=== PATIENT | male | born 1945 ===

== ENCOUNTER 2022-09-14 12:25 | Inpatient (IN) | payer OTHER ==
--- OUTSIDE RECORDS SUMMARY | 2022-09-14 12:34 | XMS REPORT | Continuity of Care Document ---
:[address] [facility] t Address [address] [facility] [place] [address] Care Team Providers Name Role Phone Lyric Fernando MD Primary Care Physician Skyler Glass Attending Clinician Unavailable Christian Fernandez MD Attending Clinician Mitul Daugherty MD Attending Clinician DARILNG BEST Attending Clinician Unavailable Deandre Attending Clinician Unavailable Adriana APPLE, Poly Roth Attending Clinician [phone] Jose Izquierdo MA Attending Clinician Unavailable ADRIANA PIERRE DIAMOND [employer]LEY OPERATOR Attending Clinician Unavailable Marilin Sow, Josey Kruse Attending Clinician A_Deepak Attending Clinician Unavailable Herber_Rolf Attending Clinician Unavailable Tiki Griffith Attending Clinician Unavailable Geeta Tucker MA Attending Clinician Unavailable LYRIC FERNANDO Attending Clinician Unavailable JUANPABLO KELLEY Attending Clinician Unavailable CHRISTIAN FERNANDEZ Attending Clinician Unavailable MEEK DO Attending Clinician Unavailable HALLIE LUGO Attending Clinician Unavailable PJ BRYSON Attending Clinician Unavailable IRINA SHAH Attending Clinician Unavailable BOO DENTON Attending Clinician Unavailable EVANGELINA GARCIA Attending Clinician Unavailable Skyler Glass Admitting Clinician Unavailable Deandre Admitting Clinician Unavailable A_Deepak Admitting Clinician Unavailable Herber_Rolf Admitting Clinician Unavailable Payers Payer Name Policy Type Policy Number Effective Date Expiration Date S jose [place]IC[place]: [id number] 2009 [employer] Funding 00:00:00 [employer] [id number] INSURANCE [employer] (MEDICARE SUPPLEMENT) [place]IC[place]: [id number] 2009 [employer] Funding 00:00:00 - [facility] Problems Condition Condition Condition Status Onset Resolution Last Treating Co mments Source Name Details Category Date Date Treatment Clinician Date Screening Screening Problem Active [facility] for for 3-08 da malignant Malignant 00:00: Medi ehsan neoplasm Neoplasm 00 Group of of prostate Prostate Acute Acute Problem Active [facility] urinary Urinary 1-13 da tract Tract 00:00: Medical infection Infection 00 Grou p Vascular Vascular Problem Active [facility] dementia Dementia 8-31 da without without 00:00: Medical behavioral Behavioral 00 Gr oup disturbanc Disturbanc e e Parkinson' Parkinson' Disease Active M ethodi s disease s disease 07-17 st 00:00: Hospita 00 l Oropharyng Oropharyng Disease Active M ethodi eal eal 07-17 st dysphagia dysphagia 00:00: [facility]osp [facility] 00 l Parkinson' Parkinson' Problem Active [facility] s disease s Disease 3-03 da 00:00: Medical 00 Group Peripheral Peripheral Problem Active [facility] nerve Nerve 8-12 da disease Disease 00:00: Medical 00 Group Pain in Pain in Problem Active [facility] left knee Left Knee 8-12 da 00:00: Medical 00 Group Poor Poor Problem Active [facility] short-term Short-term 7-09 da memory Memory 00:00: Medical 00 Group 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 6-25 st impairment impairment 00:00: Ho danishakiet ) ) 00 l Amnesia Amnesia Problem Active [facility] 6-11 da 00:00: Medical 00 Group Peripheral Peripheral Problem Active [facility] vascular Vascular 5-14 da disease Disease 00:00: Medical 00 Group 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 5-14 da lower Lower 00:00: Medical extremity Extremity 00 Grou p Gastroesop Gastroesop Problem Active [facility] hageal hageal 5-14 da reflux Reflux 00:00: Medical disease Disease 00 Group without without esophagiti Esophagiti s s Benign Benign Problem Active [facility] prostatic Prostatic 5-14 da hyperplasi Hyperplasi 00:00: Me dical a without a without 00 Grou p outflow Outflow obstructio Obstructio n n Elevated Elevated Problem Active [facility] blood-pres Blood-pres 5-14 da sure sure 00:00: Medical reading Reading 00 Group without without diagnosis Diagnosis of of hypertensi Hypertensi on on Adult Adult Problem Active [facility] 5-[facility] da examinatio Examinatio 00:00: Me dical n n 00 Group Open wound Open Wound Problem Active [facility] of finger of Finger 1-27 da 00:00: Medical 00 Group Bronchitis Bronchitis Problem Active 2017-04 [facility] 2-06 da 00:00: Medical 00 Group Gastroesop Gastroesop Problem Active [facility] hageal hageal da reflux Reflux Medical disease Disease Group Dermatitis Dermatitis Problem Active [facility] Medical Group Confusiona Confusiona Problem Active [facility] l state l State da Medical Group Low back Low Back Problem Active [facility] pain Pain da Medical Group Abnormal Abnormal Problem Active [facility] gait Gait [facility] Medical Group Measuremen Measuremen Problem Active [facility] t finding t Finding da above above Medical reference Reference Grou p range Range Laceration Laceration Problem Active [facility] of forearm of Forearm da Medical Group Allergies, Adverse Reactions, Alerts This patient has no known allergies or adverse reactions. Family History Family Member Diagnosis Comments Start Date Stop Date Source Natural father Cancer [facility] Natural mother Hypertension [facility] Social History Social Habit Start Date Stop Date Quantity Comments Source Gender identity 2020-02-28 Identifies as male M ethodist 14:39:19 gender (finding) Hospital Sexual orientation 2020-02-28 Heterosexual Meth odist 14:39:19 (finding) Hospital Alcohol intake 2022-05-22 2022-05-22 Current drinker of [facility] 00:00:00 00:00:00 alcohol (finding) Hospita l History of Social 2022-05-22 2022-05-[address] function 00:00:00 00:00:00 Hospital Tobacco use and 2022-01-01 2022-01-01 Smokeless tobacco [facility] exposure 00:00:00 00:00:00 non-user Hospital Sex Ass[birth year] At [birth year] [facility] 00:00:00 00:00:00 [facility] Smoking Status Start Date Stop Date Source Former Smoker [facility] Never smoked tobacco [facility] Medications Ordered Filled Start Stop Current Ordering Indication Dosage Frequency Signature Comments Components Source Medication Medication Date Date Medication? Clinician (SIG) Name Name clonAZEPAM 2022- Yes TAKE ONE [facility] (KlonoPIN) 4-19 10-17 (1) TABLET st 0.5 MG 00:00: 04:59 (0.5 MG Hospita tablet 00 :00 TOTAL) BY l MOUTH NIGHTLY. clonAZEPAM 2022- Yes TAKE ONE [facility] (KlonoPIN) 4-19 10-17 (1) TABLET st 0.5 MG 00:00: 04:59 (0.5 MG Hospita tablet 00 :00 TOTAL) BY l MOUTH NIGHTLY. clonAZEPAM 2022- Yes TAKE ONE [facility] (KlonoPIN) 4-19 10-17 (1) TABLET st 0.5 MG 00:00: 04:59 (0.5 MG Hospita tablet 00 :00 TOTAL) BY l MOUTH NIGHTLY. clonAZEPAM 2022- Yes TAKE ONE [facility] (KlonoPIN) 4-19 10-17 (1) TABLET st 0.5 MG 00:00: 04:59 (0.5 MG Hospita tablet 00 :00 TOTAL) BY l MOUTH NIGHTLY. memantine 2022-0 Yes [id number] TAKE ONE [facility] (NAMENDA) 5 2-22 (1) TABLET st MG tablet 00:00: (5 MG Hospita 00 TOTAL) BY l MOUTH EVERY NIGHT AT BEDTIME X 1 WEEK THEN TAKE ONE TABLET TWICE A DAY. memantine 2022-0 Yes [id number] TAKE ONE Method[facility] (NAMENDA) 5 2-22 (1) TABLET st MG tablet 00:00: (5 MG Hospita 00 TOTAL) BY l MOUTH EVERY NIGHT AT BEDTIME X 1 WEEK THEN TAKE ONE TABLET TWICE A DAY. memantine 2022-0 Yes [id number] TAKE ONE [facility] (NAMENDA) 5 2-22 (1) TABLET st MG tablet 00:00: (5 MG Hospita 00 TOTAL) BY l MOUTH EVERY NIGHT AT BEDTIME X 1 WEEK THEN TAKE ONE TABLET TWICE A DAY. memantine 2022-0 Yes [id number] TAKE ONE [facility] (NAMENDA) 5 2-22 (1) TABLET st MG tablet 00:00: (5 MG Hospita 00 TOTAL) BY l MOUTH EVERY NIGHT AT BEDTIME X 1 WEEK THEN TAKE ONE TABLET TWICE A DAY. omeprazole 2023-0 Yes Q24H daily. Metho di (PriLOSEC) 1-25 st 40 MG 13:16: Hospita capsule 04 l tamsulosin 3-0 Yes tamsulosin M ethodi (FLOMAX) 1-[address] 0.4 mg 13:16: capsule Hospita capsule 04 TAKE 1 l CAPSULE BY MOUTH EVERY DAY TO IMPROVE URINARY STREAM take for prostate omeprazole 2023-0 Yes Q24H daily. Metho di (PriLOSEC) 1-25 st 40 MG 13:16: Hospita capsule 04 l tamsulosin 2023-0 Yes tamsulosin M ethodi (FLOMAX) 1-[address] 0.4 mg 13:16: capsule Hospita capsule 04 TAKE 1 l CAPSULE BY MOUTH EVERY DAY TO IMPROVE URINARY STREAM take for prostate omeprazole 2023-0 Yes Q24H daily. Metho di (PriLOSEC) 1-25 st 40 MG 13:16: Hospita capsule 04 l tamsulosin 0 Yes tamsulosin M ethodi (FLOMAX) 1-[address] 0.4 mg 13:16: capsule Hospita capsule 04 TAKE 1 l CAPSULE BY MOUTH EVERY DAY TO IMPROVE URINARY STREAM take for prostate omeprazole 2022-0 Yes Q24H daily. Metho di (PriLOSEC) 1-25 st 40 MG 13:16: Hospita capsule 04 l tamsulosin Yes tamsulosin M ethodi (FLOMAX) 1-[address] 0.4 mg 13:16: capsule Hospita capsule 04 TAKE 1 l CAPSULE BY MOUTH EVERY DAY TO IMPROVE URINARY STREAM take for prostate QUEtiapine 2022- No [id number] 50mg QD Take 2 Methodi (SEROqueL) 1-25 07-[address] 25 MG 00:00: 04:59 (50 mg Hospita tablet 00 :00 total) by l mouth nightly for 180 days. gabapentin 2022- No [id number] 300mg Q.5D Take 1 Method[facility] (Neurontin) 1-25 07-[address] 300 mg 00:00: 04:59 (300 mg Hospita capsule 00 :00 total) by l mouth 2 (two) times a day for 180 days. QUEtiapine 2022- No [id number] 50mg QD Take 2 [facility] (SEROqueL) 1-25 07-[address] 25 MG 00:00: 04:59 (50 mg Hospita tablet 00 :00 total) by l mouth nightly for 180 days. gabapentin 2022- No [id number] 300mg Q.5D Take 1 [facility] (Neurontin) 1-25 07-[address] 300 mg 00:00: 04:59 (300 mg Hospita capsule 00 :00 total) by l mouth 2 (two) times a day for 180 days. QUEtiapine 2022- No [id number] 50mg QD Take 2 [facility] (SEROqueL) 1-25 07-[address] 25 MG 00:00: 04:59 (50 mg Hospita tablet 00 :00 total) by l mouth nightly for 180 days. gabapentin 2022- No [id number] 300mg Q.5D Take 1 [facility] (Neurontin) 1-25 07-[address] 300 mg 00:00: 04:59 (300 mg Hospita capsule 00 :00 total) by l mouth 2 (two) times a day for 180 days. QUEtiapine 2022- No [id number] 50mg QD Take 2 [facility] (SEROqueL) 1-25 07-[address] 25 MG 00:00: 04:59 (50 mg Hospita tablet 00 :00 total) by l mouth nightly for 180 days. gabapentin 2022- No [id number] 300mg Q.5D Take 1 [facility] (Neurontin) 1-25 07-[address] 300 mg 00:00: 04:59 (300 mg Hospita capsule 00 :00 total) by l mouth 2 (two) times a day for 180 days. QUEtiapine 2022- No [id number] 25mg QD Take 1 [facility] (SEROqueL) 05-1325 tablet (25 st 25 MG 00:00: 00:00 mg total) Hospit a tablet 00 :00 by mouth l nightly for 90 days. QUEtiapine 2022- No [id number] 25mg QD Take 1 [facility] (SEROqueL) 05-13-25 tablet (25 st 25 MG 00:00: 00:00 mg total) Hospit a tablet 00 :00 by mouth l nightly for 90 days. QUEtiapine 2022- No [id number] 25mg QD Take 1 [facility] (SEROqueL) 05-13-25 tablet (25 st 25 MG 00:00: 00:00 mg total) Hospit a tablet 00 :00 by mouth l nightly for 90 days. QUEtiapine 2022- No [id number] 25mg QD Take 1 [facility] (SEROqueL) 05-13-25 tablet (25 st 25 MG 00:00: 00:00 mg total) Hospit a tablet 00 :00 by mouth l nightly for 90 days. tiZANidine Yes TAKE ONE Met [facility]odi (ZANAFLEX) 9-26 (1) TABLET st 4 MG tablet 00:00: (4 MG Hospi ta 00 TOTAL) BY l MOUTH EVERY 8 (EIGHT) HOURS NEEDED FOR MUSCLE SPASMS. tiZANidine Yes TAKE ONE Met [facility] (ZANAFLEX) 9-26 (1) TABLET st 4 MG tablet 00:00: (4 MG Hospi ta 00 TOTAL) BY l MOUTH EVERY 8 (EIGHT) HOURS NEEDED FOR MUSCLE SPASMS. tiZANidine Yes TAKE ONE Met hodi (ZANAFLEX) 9-26 (1) TABLET st 4 MG tablet 00:00: (4 MG Hospi ta 00 TOTAL) BY l MOUTH EVERY 8 (EIGHT) HOURS NEEDED FOR MUSCLE SPASMS. tiZANidine Yes TAKE ONE Met [facility]odi (ZANAFLEX) 9-26 (1) TABLET st 4 MG tablet 00:00: (4 MG Hospi ta 00 TOTAL) BY l MOUTH EVERY 8 (EIGHT) HOURS NEEDED FOR MUSCLE SPASMS. clonAZEPAM 2022- No [id number] .5mg QD Take 1 [facility] (KlonoPIN) 01-[address] 0.5 MG 00:00: 05:59 (0.5 mg Hospita tablet 00 :00 total) by l mouth nightly for 180 days. clonAZEPAM 2022- No [id number] .5mg QD Take 1 [facility] (KlonoPIN) 01-[address] 0.5 MG 00:00: 05:59 (0.5 mg Hospita tablet 00 :00 total) by l mouth nightly for 180 days. clonAZEPAM 2022- No [id number] .5mg QD Take 1 [facility] (KlonoPIN) 01-[address] 0.5 MG 00:00: 05:59 (0.5 mg Hospita tablet 00 :00 total) by l mouth nightly for 180 days. clonAZEPAM 2022- No [id number] .5mg QD Take 1 [facility] (KlonoPIN) 01-[address] 0.5 MG 00:00: 05:59 (0.5 mg Hospita tablet 00 :00 total) by l mouth nightly for 180 days. diazePAM 2021- No diazepam 2 [facility] (VALIUM) 2 01-01 09-[address] MG tablet 15:03: 00:00 TAKE ONE Hos julián 41 :00 (1) TABLET l 3 TIMES A DAY BY ORAL ROUTE FOR ANXIETY. diazePAM 2021- No diazepam 2 [facility] (VALIUM) 2 01-01 09-[address] MG tablet 15:03: 00:00 TAKE ONE Hos julián 41 :00 (1) TABLET l 3 TIMES A DAY BY ORAL ROUTE FOR ANXIETY. diazePAM 2021- No diazepam 2 [facility] (VALIUM) 2 01-01-[address] MG tablet 15:03: 00:00 TAKE ONE Hos julián 41 :00 (1) TABLET l 3 TIMES A DAY BY ORAL ROUTE FOR ANXIETY. diazePAM 2021- No diazepam 2 [facility] (VALIUM) 2 01-01-[address] MG tablet 15:03: 00:00 TAKE ONE Hos julián 41 :00 (1) TABLET l 3 TIMES A DAY BY ORAL ROUTE FOR ANXIETY. clonAZEPAM 2021- No [id number] .5mg QD Take 1 [facility] (KlonoPIN) 01-[address] 0.5 MG 00:00: 00:00 (0.5 mg Hospita tablet 00 :00 total) by l mouth nightly for 180 days. clonAZEPAM 2021- No [id number] .5mg QD Take 1 [facility] (KlonoPIN) 01-[address] 0.5 MG 00:00: 00:00 (0.5 mg Hospita tablet 00 :00 total) by l mouth nightly for 180 days. clonAZEPAM 2021-2021- No [id number] .5mg QD Take 1 [facility] (KlonoPIN) 01-[address] 0.5 MG 00:00: 00:00 (0.5 mg Hospita tablet 00 :00 total) by l mouth nightly for 180 days. clonAZEPAM 2021-2021- No [id number] .5mg QD Take 1 [facility] (KlonoPIN) 01-[address] 0.5 MG 00:00: 00:00 (0.5 mg Hospita tablet 00 :00 total) by l mouth nightly for 180 days. omeprazole 2021-0 Yes Q24H daily. Metho di (PriLOSEC) 07-17 st 40 MG 13:37: Hospita capsule 45 l tamsulosin 2-0 Yes tamsulosin M ethodi (FLOMAX) - 0.[address] 0.4 mg 13:37: capsule Hospita capsule 45 TAKE 1 l CAPSULE BY MOUTH EVERY DAY TO IMPROVE URINARY STREAM take for prostate omeprazole 2021- Yes Q24H daily. Metho di (PriLOSEC) 07-17 st 40 MG 13:37: Hospita capsule 45 l tamsulosin Yes tamsulosin M ethodi (FLOMAX) 07-[address] 0.4 mg 13:37: capsule Hospita capsule 45 TAKE 1 l CAPSULE BY MOUTH EVERY DAY TO IMPROVE URINARY STREAM take for prostate carbidopa-l 2021-2022- No [id number] 2{tbl} Q.[id number] Take 2 [facility] evodopa 07-[id number] (Sinemet) 00:00: 04:59 3D mouth 3 Hosp oll[facility] 25-100 mg 00 :00 (three) l per tablet times a day for 360 days. carbidopa-l 2022- No [id number] 2{tbl} Q.[id number] Take 2 [facility] evodopa 07-[id number] (Sinemet) 00:00: 04:59 3D mouth 3 Hosp [facility] 25-100 mg 00 :00 (three) l per tablet times a day for 360 days. carbidopa-l 2022- No [id number] 2{tbl} Q.[id number] Take 2 [facility] evodopa 07-[id number] (Sinemet) 00:00: 04:59 3D mouth 3 Hosp [facility] 25-100 mg 00 :00 (three) l per tablet times a day for 360 days. carbidopa-l 2021-0 2022- No [id number] 2{tbl} Q.[id number] Take 2 [facility] evodopa 07-[id number] (Sinemet) 00:00: 04:59 3D mouth 3 Hosp [facility] 25-100 mg 00 :00 (three) l per tablet times a day for 360 days. carbidopa-l 2021-2022- No [id number] 2{tbl} Q.[id number] Take 2 [facility] evodopa 07-[id number] (Sinemet) 00:00: 04:59 3D mouth 3 Hosp [facility]ll[facility] 25-100 mg 00 :00 (three) l per tablet times a day for 360 days. carbidopa-l 2021-2022- No [id number] 2{tbl} Q.32980499 Take 2 [facility] evodopa 07-17- [id number] tablets by st (Sinemet) 00:00: 04:59 3D mouth 3 [facility]osp [facility] 25-100 mg 00 :00 (three) l per tablet times a day for 360 days. carbidopa-l 2021-2021- No [id number] 1{tbl} Q.[id number] Take 1 [facility] evodopa 06-25- [id number] tablet by st (Sinemet) 00:00: 00:00 3D mouth 3 [facility]osp [facility] 25-100 mg 00 :00 (three) l per tablet times a day. carbidopa-l 2021- No [id number] 1{tbl} Q.[id number] Take 1 [facility] evodopa 06-[id number] (Sinemet) 00:00: 00:00 3D mouth 3 [facility] 25-100 mg 00 :00 (three) l per tablet times a day. memantine 2022- No [id number] 5mg Q.5D Take 1 [facility] (Namenda) 5 06-15 tablet (5 st MG tablet 00:00: 00:00 mg total) Ho spita 00 :00 by mouth 2 l (two) times a day. memantine 2022- No [id number] 5mg Q.5D Take 1 [facility] (Namenda) 5 06-15 tablet (5 st MG tablet 00:00: 00:00 mg total) Ho spita 00 :00 by mouth 2 l (two) times a day. memantine 2022- No [id number] 5mg Q.5D Take 1 [facility] (Namenda) 5 06-15 tablet (5 st MG tablet 00:00: 00:00 mg total) Ho spita 00 :00 by mouth 2 l (two) times a day. memantine 2022- No [id number] 5mg Q.5D Take 1 [facility] (Namenda) 5 -15 06- tablet (5 st MG tablet 00:00: 00:00 mg total) Ho spita 00 :00 by mouth 2 l (two) times a day. memantine 2022- No [id number] 5mg Q.5D Take 1 [facility] (Namenda) 5 -18 -19 tablet (5 st MG tablet 00:00: 05:59 mg total) Ho spita 00 :00 by mouth 2 l (two) times a day. memantine 2022- No [id number] 5mg Q.5D Take 1 [facility] (Namenda) 5 -15 06- tablet (5 st MG tablet 00:00: 05:59 mg total) Ho spita 00 :00 by mouth 2 l (two) times a day. tiZANidine 2021- No [id number] 4mg Q8H Take 1 [facility] (Zanaflex) 2-18 -18 tablet (4 st 4 MG tablet 00:00: 04:59 mg total) Hospita 00 :00 by mouth l every 8 (eight) hours as needed for muscle spasms for up to 180 days. tiZANidine 2021- No [id number] 4mg Q8H Take 1 [facility] (Zanaflex) 2-18 -18 tablet (4 st 4 MG tablet 00:00: 04:59 mg total) Hospita 00 :00 by mouth l every 8 (eight) hours as needed for muscle spasms for up to 180 days. tiZANidine 2021- No [id number] 4mg Q8H Take 1 [facility] (Zanaflex) 2-18 08-18 tablet (4 st 4 MG tablet 00:00: 04:59 mg total) Hospita 00 :00 by mouth l every 8 (eight) hours as needed for muscle spasms for up to 180 days. tiZANidine 2021- No [id number] 4mg Q8H Take 1 [facility] (Zanaflex) 2-18 08-18 tablet (4 st 4 MG tablet 00:00: 04:59 mg total) Hospita 00 :00 by mouth l every 8 (eight) hours as needed for muscle spasms for up to 180 days. tiZANidine 2021- No [id number] 4mg Q8H Take 1 [facility] (Zanaflex) 06-15-18 tablet (4 st 4 MG tablet 00:00: 04:59 mg total) Hospita 00 :00 by mouth l every 8 (eight) hours as needed for muscle spasms for up to 180 days. tiZANidine 2021- No [id number] 4mg Q8H Take 1 [facility] (Zanaflex) 06-1518 tablet (4 st 4 MG tablet 00:00: 04:59 mg total) Hospita 00 :00 by mouth l every 8 (eight) hours as needed for muscle spasms for up to 180 days. benzonatate benzonatate No 1capsul TID benzonatat [facility] 200 mg 200 mg e(s) e 200 mg da capsule capsule capsule Medica l Take 1 Take 1 Take 1 Group capsule 3 capsule 3 capsule 3 times a day times a day times a by oral by oral day by route. route. oral route. BinaxNOW BinaxNOW No BinaxNOW [facility] COVID-19 Ag COVID-19 Ag COVID-19 da Self Test Self Test Ag Self Me dical kit Use as kit Use as Test kit Group Directed on Directed on Use as the Package the Package Directed on the Package carbidopa carbidopa No carbidopa [facility] 25 25 25 da mg-levodopa mg-levodopa mg-levodop Medical 100 mg 100 mg a 100 mg Group tablet TAKE tablet TAKE tablet TWO (2) TWO (2) TAKE TWO TABLETS BY TABLETS BY (2) MOUTH 3 MOUTH 3 TABLETS BY (THREE) (THREE) MOUTH 3 TIMES A TIMES A (THREE) DAY. DAY. TIMES A DAY. dexamethaso dexamethaso No 1 Q1D dexamethas [facility] ne 6 mg ne 6 mg one 6 mg da tablet Take tablet Take tablet Medical 1 tablet 1 tablet Take 1 Group every day every day tablet by oral by oral every day route. route. by oral route. memantine 5 memantine 5 No memantine [facility] mg tablet mg tablet 5 mg da TAKE ONE TAKE ONE tablet Medic al (1) TABLET (1) TABLET TAKE ONE Group (5 MG (5 MG (1) TABLET TOTAL) BY TOTAL) BY (5 MG MOUTH EVERY MOUTH EVERY TOTAL) BY NIGHT AT NIGHT AT MOUTH BEDTIME X 1 BEDTIME X 1 EVERY WEEK THEN WEEK THEN NIGHT AT TAKE ONE TAKE ONE BEDTIME X TABLET TABLET 1 WEEK TWICE A TWICE A THEN TAKE DAY. DAY. ONE TABLET TWICE A DAY. omeprazole omeprazole No omeprazole [facility] 40 mg 40 mg 40 mg da capsule,del capsule,del capsule,de Medical ayed ayed layed Group release release release TAKE ONE TAKE ONE TAKE ONE (1) (1) (1) CAPSULE(S) CAPSULE(S) CAPSULE(S) BY MOUTH BY MOUTH BY MOUTH ONCE A DAY. ONCE A DAY. ONCE A NEEDS AN NEEDS AN DAY. NEEDS APPOINTMENT APPOINTMENT AN BEFORE NEXT BEFORE NEXT APPOINTMEN REFILL. REFILL. T BEFORE NEXT REFILL. tamsulosin tamsulosin No tamsulosin [facility] 0.4 mg 0.4 mg 0.4 mg da capsule capsule capsule Medica l TAKE ONE TAKE ONE TAKE ONE Faraz up CAPSULE BY CAPSULE BY CAPSULE BY MOUTH DAILY MOUTH DAILY MOUTH TO IMPROVE TO IMPROVE DAILY TO URINARY URINARY IMPROVE STREAM STREAM URINARY NEEDS. NEEDS. STREAM NEEDS. temazepam temazepam No 1capsul Q1D temazepam [facility] 15 mg 15 mg e(s) 15 mg da capsule capsule capsule Medica l Take 1 Take 1 Take 1 Group capsule capsule capsule every day every day every day by oral by oral by oral route. route. route. tizanidine tizanidine No tizanidine [facility] 4 mg tablet 4 mg tablet 4 mg d a TAKE ONE TAKE ONE tablet Medic al (1) TABLET (1) TABLET TAKE ONE Group (4 MG (4 MG (1) TABLET TOTAL) BY TOTAL) BY (4 MG MOUTH EVERY MOUTH EVERY TOTAL) BY 8 (EIGHT) 8 (EIGHT) MOUTH HOURS HOURS EVERY 8 NEEDED FOR NEEDED FOR (EIGHT) MUSCLE MUSCLE HOURS SPASMS. SPASMS. NEEDED FOR MUSCLE SPASMS. Valium 2 mg Valium 2 mg No 1 TID Valium 2 [facility] tablet Take tablet Take mg tablet da 1 tablet 3 1 tablet 3 Take 1 M edical times a day times a day tablet 3 Group by oral by oral times a route. route. day by oral route. Zithromax Zithromax No Zithromax [facility] Z-Jason 250 Z-Jason 250 Z-Jason 250 da mg tablet mg tablet mg tablet Medical TAKE 2 TAKE 2 TAKE 2 Group TABLETS TABLETS TABLETS (500 MG) BY (500 MG) BY (500 MG) ORAL ROUTE ORAL ROUTE BY ORAL ONCE DAILY ONCE DAILY ROUTE ONCE FOR 1 DAY FOR 1 DAY DAILY FOR THEN 1 THEN 1 1 DAY THEN TABLET (250 TABLET (250 1 TABLET MG) BY ORAL MG) BY ORAL (250 MG) ROUTE ONCE ROUTE ONCE BY ORAL DAILY FOR 4 DAILY FOR 4 ROUTE ONCE DAYS DAYS DAILY FOR 4 DAYS amoxicillin amoxicillin No amoxicilli [facility] [id number] n 875 da mg-potassiu mg-potassiu mg-potassi Medical m m um Group clavulanate clavulanate clavulanat 125 mg 125 mg e 125 mg tablet TAKE tablet TAKE tablet 1 TABLET 1 TABLET TAKE 1 EVERY 12 EVERY 12 TABLET HOURS BY HOURS BY EVERY 12 ORAL ROUTE ORAL ROUTE HOURS BY FOR 10 FOR 10 ORAL ROUTE DAYS. DAYS. FOR 10 DAYS. azithromyci azithromyci No azithromyc [facility] n 250 mg n 250 mg in 250 mg da tablet TAKE tablet TAKE tablet Medical 2 TABLETS 2 TABLETS TAKE 2 Faraz up (500 MG) BY (500 MG) BY TABLETS ORAL ROUTE ORAL ROUTE (500 MG) ONCE DAILY ONCE DAILY BY ORAL FOR 1 DAY FOR 1 DAY ROUTE ONCE THEN 1 THEN 1 DAILY FOR TABLET (250 TABLET (250 1 DAY THEN MG) BY ORAL MG) BY ORAL 1 TABLET ROUTE ONCE ROUTE ONCE (250 MG) DAILY FOR 4 DAILY FOR 4 BY ORAL DAYS DAYS ROUTE ONCE DAILY FOR 4 DAYS benzonatate benzonatate No benzonatat [facility] 200 mg 200 mg e 200 mg da capsule capsule capsule Medica l TAKE ONE TAKE ONE TAKE ONE Faraz up (1) (1) (1) CAPSULE(S) CAPSULE(S) CAPSULE(S) BY MOUTH BY BY MOUTH BY BY MOUTH MOUTH THREE MOUTH THREE BY MOUTH TIMES A DAY TIMES A DAY THREE NEEDED NEEDED TIMES A FOR COUGH. FOR COUGH. DAY NEEDED FOR COUGH. carbidopa carbidopa No carbidopa [facility] 25 25 25 da mg-levodopa mg-levodopa mg-levodop Medical 100 mg 100 mg a 100 mg Group tablet TAKE tablet TAKE tablet TWO (2) TWO (2) TAKE TWO TABLETS BY TABLETS BY (2) MOUTH 3 MOUTH 3 TABLETS BY (THREE) (THREE) MOUTH 3 TIMES A TIMES A (THREE) DAY. DAY. TIMES A DAY. clonazepam clonazepam No clonazepam [facility] 0.5 mg 0.5 mg 0.5 mg da tablet TAKE tablet TAKE tablet Medical ONE (1) ONE (1) TAKE ONE Group TABLET (0.5 TABLET (0.5 (1) TABLET MG TOTAL) MG TOTAL) (0.5 MG BY MOUTH BY MOUTH TOTAL) BY NIGHTLY. NIGHTLY. MOUTH NIGHTLY. dexamethaso dexamethaso No dexamethas [place] ne 6 mg ne 6 mg one 6 mg da tablet TAKE tablet TAKE tablet Medical 1 TABLET 1 TABLET TAKE 1 Group EVERY DAY EVERY DAY TABLET BY ORAL BY ORAL EVERY DAY ROUTE. ROUTE. BY ORAL ROUTE. memantine 5 memantine 5 No memantine [facility] mg tablet mg tablet 5 mg da TAKE ONE TAKE ONE tablet Medic al (1) TABLET (1) TABLET TAKE ONE Group (5 MG (5 MG (1) TABLET TOTAL) BY TOTAL) BY (5 MG MOUTH EVERY MOUTH EVERY TOTAL) BY NIGHT AT NIGHT AT MOUTH BEDTIME X 1 BEDTIME X 1 EVERY WEEK THEN WEEK THEN NIGHT AT TAKE ONE TAKE ONE BEDTIME X TABLET TABLET 1 WEEK TWICE A TWICE A THEN TAKE DAY. DAY. ONE TABLET TWICE A DAY. omeprazole omeprazole No omeprazole [facility] 20 mg 20 mg 20 mg da capsule,del capsule,del capsule,de Medical ayed ayed layed Group release release release omeprazole omeprazole No omeprazole [facility] 40 mg 40 mg 40 mg da capsule,del capsule,del capsule,de Medical ayed ayed layed Group release release release TAKE ONE TAKE ONE TAKE ONE (1) (1) (1) CAPSULE(S) CAPSULE(S) CAPSULE(S) BY MOUTH BY MOUTH BY MOUTH ONCE A DAY. ONCE A DAY. ONCE A DAY. tamsulosin tamsulosin No tamsulosin [facility] 0.4 mg 0.4 mg 0.4 mg da capsule capsule capsule Medica l TAKE ONE TAKE ONE TAKE ONE [facility] CAPSULE BY CAPSULE BY CAPSULE BY MOUTH DAILY MOUTH DAILY MOUTH TO IMPROVE TO IMPROVE DAILY TO URINARY URINARY IMPROVE STREAM STREAM URINARY NEEDS. NEEDS. STREAM NEEDS. tizanidine tizanidine No tizanidine [facility] 4 mg tablet 4 mg tablet 4 mg d a TAKE ONE TAKE ONE tablet Medic al (1) TABLET (1) TABLET TAKE ONE Group (4 MG (4 MG (1) TABLET TOTAL) BY TOTAL) BY (4 MG MOUTH EVERY MOUTH EVERY TOTAL) BY 8 (EIGHT) 8 (EIGHT) MOUTH HOURS HOURS EVERY 8 NEEDED FOR NEEDED FOR (EIGHT) MUSCLE MUSCLE HOURS SPASMS. SPASMS. NEEDED FOR MUSCLE SPASMS. benzonatate benzonatate No benzonatat [place] 200 mg 200 mg e 200 mg da capsule capsule capsule Medica l TAKE ONE TAKE ONE TAKE ONE [facility] (1) (1) (1) CAPSULE(S) CAPSULE(S) CAPSULE(S) BY MOUTH BY BY MOUTH BY BY MOUTH MOUTH THREE MOUTH THREE BY MOUTH TIMES A DAY TIMES A DAY THREE NEEDED NEEDED TIMES A FOR COUGH. FOR COUGH. DAY NEEDED FOR COUGH. carbidopa carbidopa No carbidopa [facility] 25 25 25 da mg-levodopa mg-levodopa mg-levodop Medical 100 mg 100 mg a 100 mg Group tablet TAKE tablet TAKE tablet TWO (2) TWO (2) TAKE TWO TABLETS BY TABLETS BY (2) MOUTH 3 MOUTH 3 TABLETS BY (THREE) (THREE) MOUTH 3 TIMES A TIMES A (THREE) DAY. DAY. TIMES A DAY. clonazepam clonazepam No clonazepam [facility] 0.5 mg 0.5 mg 0.5 mg da tablet TAKE tablet TAKE tablet Medical ONE (1) ONE (1) TAKE ONE Group TABLET (0.5 TABLET (0.5 (1) TABLET MG TOTAL) MG TOTAL) (0.5 MG BY MOUTH BY MOUTH TOTAL) BY NIGHTLY. NIGHTLY. MOUTH NIGHTLY. doxycycline doxycycline No 1capsul BID doxycyclin [facility] hyclate 100 hyclate 100 e(s) e hyclate da mg capsule mg capsule 100 mg M edical Take 1 Take 1 capsule Group capsule capsule Take 1 twice a day twice a day capsule by oral by oral twice a route for route for day by 10 days. 10 days. oral route for 10 days. gabapentin gabapentin No gabapentin [facility] 300 mg 300 mg 300 mg da capsule capsule capsule Medica l TAKE ONE TAKE ONE TAKE ONE [facility] (1) (1) (1) CAPSULE(S) CAPSULE(S) CAPSULE(S) BY MOUTH BY MOUTH BY MOUTH ONCE A DAY ONCE A DAY ONCE A DAY AT BEDTIME AT BEDTIME AT BEDTIME FOR 1 WEEK, FOR 1 WEEK, FOR 1 THEN 1 THEN 1 WEEK, THEN CAPSULE CAPSULE 1 CAPSULE (300 MG (300 MG (300 MG TOTAL) BY TOTAL) BY TOTAL) BY MOUTH 2 MOUTH 2 MOUTH 2 (TWO) TIMES (TWO) TIMES (TWO) A DAY. A DAY. TIMES A DAY. memantine 5 memantine 5 No memantine [facility] mg tablet mg tablet 5 mg da TAKE ONE TAKE ONE tablet Medic al (1) TABLET (1) TABLET TAKE ONE Group (5 MG (5 MG (1) TABLET TOTAL) BY TOTAL) BY (5 MG MOUTH EVERY MOUTH EVERY TOTAL) BY NIGHT AT NIGHT AT MOUTH BEDTIME X 1 BEDTIME X 1 EVERY WEEK THEN WEEK THEN NIGHT AT TAKE ONE TAKE ONE BEDTIME X TABLET TABLET 1 WEEK TWICE A TWICE A THEN TAKE DAY. DAY. ONE TABLET TWICE A DAY. omeprazole omeprazole No omeprazole [facility] 20 mg 20 mg 20 mg da capsule,del capsule,del capsule,de Medical ayed ayed layed Group release release release omeprazole omeprazole No omeprazole [facility] 40 mg 40 mg 40 mg da capsule,del capsule,del capsule,de Medical ayed ayed layed Group release release release TAKE ONE TAKE ONE TAKE ONE (1) (1) (1) CAPSULE(S) CAPSULE(S) CAPSULE(S) BY MOUTH BY MOUTH BY MOUTH ONCE A DAY. ONCE A DAY. ONCE A DAY. quetiapine quetiapine No quetiapine [facility] 25 mg 25 mg 25 mg da tablet TAKE tablet TAKE tablet Medical ONE (1) ONE (1) TAKE ONE Group TABLET (25 TABLET (25 (1) TABLET MG TOTAL) MG TOTAL) (25 MG BY MOUTH BY MOUTH TOTAL) BY NIGHTLY. NIGHTLY. MOUTH NIGHTLY. tamsulosin tamsulosin No tamsulosin [facility] 0.4 mg 0.4 mg 0.4 mg da capsule capsule capsule Medica l TAKE ONE TAKE ONE TAKE ONE [facility] up CAPSULE BY CAPSULE BY CAPSULE BY MOUTH DAILY MOUTH DAILY MOUTH TO IMPROVE TO IMPROVE DAILY TO URINARY URINARY IMPROVE STREAM STREAM URINARY NEEDS. NEEDS. STREAM NEEDS. tizanidine tizanidine No tizanidine [place] 4 mg tablet 4 mg tablet 4 mg d a TAKE ONE TAKE ONE tablet Medic al (1) TABLET (1) TABLET TAKE ONE Group (4 MG (4 MG (1) TABLET TOTAL) BY TOTAL) BY (4 MG MOUTH EVERY MOUTH EVERY TOTAL) BY 8 (EIGHT) 8 (EIGHT) MOUTH HOURS HOURS EVERY 8 NEEDED FOR NEEDED FOR (EIGHT) MUSCLE MUSCLE HOURS SPASMS. SPASMS. NEEDED FOR MUSCLE SPASMS. Immunizations Ordered Immunization Filled Immunization Date Status Commen ts Source Name Name COVID-19, mRNA, COVID-19, mRNA, 2021-04-02 Completed [facility] LNP-S, PF, 100 LNP-S, PF, 100 00:00:00 Medica l Group mcg/0.5 mL dose mcg/0.5 mL dose (Moderna) - ML (Moderna) - ML COVID-19, mRNA, COVID-19, mRNA, 2020-07-15 Completed [facility] LNP-S, PF, 100 LNP-S, PF, 100 00:00:00 Medica l Group mcg/0.5 mL dose mcg/0.5 mL dose (Moderna) (Moderna) COVID-19, mRNA, COVID-19, mRNA, 2020-07-15 Completed [facility] LNP-S, PF, 100 LNP-S, PF, 100 00:00:00 Medica l Group mcg/0.5 mL dose mcg/0.5 mL dose (Moderna) (Moderna) COVID-19, mRNA, COVID-19, mRNA, 2020-07-15 Completed [facility] LNP-S, PF, 100 LNP-S, PF, 100 00:00:00 Medica l Group mcg/0.5 mL dose mcg/0.5 mL dose (Moderna) (Moderna) COVID-19, mRNA, COVID-19, mRNA, 2020-06-15 Completed [facility] LNP-S, PF, 100 LNP-S, PF, 100 00:00:00 Medica l Group mcg/0.5 mL dose mcg/0.5 mL dose (Moderna) (Moderna) COVID-19, mRNA, COVID-19, mRNA, 2020-06-15 Completed [facility] LNP-S, PF, 100 LNP-S, PF, 100 00:00:00 Medica l Group mcg/0.5 mL dose mcg/0.5 mL dose (Moderna) (Moderna) COVID-19, mRNA, COVID-19, mRNA, 2020-06-15 Completed [facility] LNP-S, PF, 100 LNP-S, PF, 100 00:00:00 Medica l Group mcg/0.5 mL dose mcg/0.5 mL dose (Moderna) (Moderna) influenza, high dose influenza, high 2017-01-22 Completed [place] seasonal dose seasonal 11:01:38 Medical [facility] influenza, high dose influenza, high 2017-01-22 Completed [place] seasonal dose seasonal 11::38 Medical [facility] influenza, high dose influenza, high 2017-01-22 Completed [place] seasonal dose seasonal 11:01:38 Medical [facility] Vital Signs Vital Name Observation Time Observation Value Comments Source BP Diastolic 2022-07-03 00:00:00 79 mm[Hg] [facility] Height 2022-07-03 00:00:00 70 [in_i] [facility] BMI (Body Mass 2022-07-03 00:00:00 23.5 kg/m2 [facility]) Group BP Systolic 2022-07-03 00:00:00 123 mm[Hg] [facility] Body Weight 2022-07-03 00:00:00 2616 [oz_av] [facility] BP Diastolic 2022-05-10 00:00:00 67 mm[Hg] [facility] Height 2022-05-10 00:00:00 70 [in_i] [facility] BMI (Body Mass 2022-05-10 00:00:00 22.8 kg/m2 [facility]) Group BP Systolic 2022-05-10 00:00:00 109 mm[Hg] [facility] Body Weight 2022-05-10 00:00:00 2544 [oz_av] [facility] BP Diastolic 2021-12-26 00:00:00 95 mm[Hg] [facility] Height 2021-12-26 00:00:00 70 [in_i] [facility] BMI (Body Mass 2021-12-26 00:00:00 22 kg/m2 [facility]) Group BP Systolic 2021-12-26 00:00:00 166 mm[Hg] [facility] Body Weight 2021-12-26 00:00:00 2451.2 [oz_av] [facility] BP Diastolic 2021-06-28 00:00:00 79 mm[Hg] [facility] Height 2021-06-28 00:00:00 70 [in_i] [facility] BMI (Body Mass 2021-06-28 00:00:00 24.7 kg/m2 [facility] Group BP Systolic 2021-06-28 00:00:00 145 mm[Hg] [facility] Body Weight 2021-06-28 00:00:00 2752 [oz_av] [facility] BP Diastolic 2021-03-28 00:00:00 82 mm[Hg] [facility] Height 2021-03-28 00:00:00 70 [in_i] [facility] BP Systolic 2021-03-28 00:00:00 150 mm[Hg] [facility] BP Diastolic 2020-12-07 00:00:00 78 mm[Hg] [facility] Height 2020-12-07 00:00:00 70 [in_i] [facility] BMI (Body Mass 2020-12-07 00:00:00 24.1 kg/m2 [facility] Group BP Systolic 2020-12-07 00:00:00 119 mm[Hg] [facility] Body Weight 2020-12-07 00:00:00 2683.2 [oz_av] [facility] BP Diastolic 2019-11-04 00:00:00 77 mm[Hg] [facility] Height 2019-11-04 00:00:00 70 [in_i] [facility] BMI (Body Mass 2019-11-04 00:00:00 25 kg/m2 [facility] Group BP Systolic 2019-11-04 00:00:00 154 mm[Hg] [facility] Body Weight 2019-11-04 00:00:00 2784 [oz_av] [facility] BP Diastolic 2019-10-19 00:00:00 74 mm[Hg] [facility] Height 2019-10-19 00:00:00 70 [in_i] [facility] BMI (Body Mass 2019-10-19 00:00:00 25 kg/m2 [facility] Group BP Systolic 2019-10-19 00:00:00 132 mm[Hg] [facility] Body Weight 2019-10-19 00:00:00 174 [lb_av] [facility] BP Diastolic 2019-10-07 00:00:00 73 mm[Hg] [facility] Height 2019-10-07 00:00:00 70 [in_i] [facility] BMI (Body Mass 2019-10-07 00:00:00 25 kg/m2 [facility] Group BP Systolic 2019-10-07 00:00:00 125 mm[Hg] [facility] Body Weight 2019-10-07 00:00:00 2784 [oz_av] [facility] BP Diastolic 2019-09-16 00:00:00 80 mm[Hg] [facility] Height 2019-09-16 00:00:00 70 [in_i] [facility] BMI (Body Mass 2019-09-16 00:00:00 24.8 kg/m2 [facility] Group BP Systolic 2019-09-16 00:00:00 132 mm[Hg] [facility] Body Weight 2019-09-16 00:00:00 172.9 [lb_av] [facility] BP Diastolic 2019-09-09 00:00:00 86 mm[Hg] [facility] Height 2019-09-09 00:00:00 177.4 [in_i] [facility] BMI (Body Mass 2019-09-09 00:00:00 3.9 kg/m2 [facility] Group BP Systolic 2019-09-09 00:00:00 150 mm[Hg] [facility] Body Weight 2019-09-09 00:00:00 2800 [oz_av] [facility] BP Diastolic 2019-05-19 00:00:00 87 mm[Hg] [facility] Height 2019-05-19 00:00:00 177.4 [in_i] [facility] BMI (Body Mass 2019-05-19 00:00:00 4 kg/m2 [facility] Group BP Systolic 2019-05-19 00:00:00 160 mm[Hg] [facility] Body Weight 2019-05-19 00:00:00 2838.4 [oz_av] [facility] Systolic blood 2022-05-22 19:16:00 133 mm[Hg] [facility] pressure Diastolic blood 2022-05-22 19:16:00 87 [facility] Heart [facility] 2022-05-22 19:16:00 70 /min [facility] Body height 2022-05-22 19:16:00 162.6 cm [facility] Body weight 2022-05-22 19:16:00 71.215 kg [facility] BMI 2022-05-22 19:16:00 26.95 kg/m2 [facility] Systolic blood 2021-07-17 18:36:00 167 mm[Hg] [facility] pressure Diastolic blood 2021-07-17 18:36:00 78 mm[Hg] [facility] pressure Heart rate 2021-07-17 18:36:00 55 /min [facility] Body temperature 2021-07-17 18:36:[address] [facility] Body height 2021-07-17 18:36:00 162.6 cm [facility] Body weight 2021-07-17 18:36:00 77.111 kg [facility] BMI 2021-07-17 18:36:00 29.18 kg/m2 [facility] Procedures Procedure Date / Time Performed Performing Clinician Sourc e AMMONIA LEVEL 2022-01-01 20:29:00 Spheeris, [facility] Gonzalez XR, knee 2020-12-07 00:00:00 Barry Zamorano dical Group unlisted imaging 2019-09-16 00:00:00 Barry Schaefer edical order Group US, duplex, arterial, 2019-09-09 00:00:00 Cooper riggins Medical lower extremity, Group complete Plan of Care Planned Activity Planned Date Details Comments Source Future Scheduled Test 2022-09-12 Hepatitis C screening [facility] 18:32:59 (procedure) [code = 159912846] Future Scheduled Test 2022-09-12 SHINGLES VACCINES (1 [facility] 18:32:59 of 2) [code = SHINGLES VACCINES (1 of 2)] Future Scheduled Test 2022-09-12 65+ PNEUMOCOCCAL [facility] 18:32:59 VACCINE (1 - PCV) [code = 65+ PNEUMOCOCCAL VACCINE (1 - PCV)] Future Scheduled Test 2022-09-12 COVID-19 VACCINE (3 - [facility] 18:32:59 Booster for Moderna series) [code = COVID-19 VACCINE (3 - Booster for Moderna series)] Future Scheduled Test 2022-09-12 INFLUENZA VACCINE [facility] 18:32:59 [code = INFLUENZA VACCINE] Future Scheduled Test 2022-08-23 Hepatitis C screening [facility] 14:05:13 (procedure) [code = 766309439] Future Scheduled Test 2022-08-23 SHINGLES VACCINES (1 [facility] 14:05:13 of 2) [code = SHINGLES VACCINES (1 of 2)] Future Scheduled Test 2022-08-23 65+ PNEUMOCOCCAL [facility] 14:05:13 VACCINE (1 - PCV) [code = 65+ PNEUMOCOCCAL VACCINE (1 - PCV)] Future Scheduled Test 2022-08-23 COVID-19 VACCINE (3 - [facility] 14:05:13 Booster for Moderna series) [code = COVID-19 VACCINE (3 - Booster for Moderna series)] Future Scheduled Test 2022-08-23 INFLUENZA VACCINE [facility] 14:05:13 [code = INFLUENZA VACCINE] Future Scheduled Test 2022-08-23 Hepatitis C screening [facility] 14:05:13 (procedure) [code = [id number]] Future Scheduled Test 2022-08-23 SHINGLES VACCINES (1 [facility] 14:05:13 of 2) [code = SHINGLES VACCINES (1 of 2)] Future Scheduled Test 2022-08-23 65+ PNEUMOCOCCAL [facility] 14:05:13 VACCINE (1 - PCV) [code = 65+ PNEUMOCOCCAL VACCINE (1 - PCV)] Future Scheduled Test 2022-08-23 COVID-19 VACCINE (3 - [facility] 14:05:13 Booster for Moderna series) [code = COVID-19 VACCINE (3 - Booster for Moderna series)] Future Scheduled Test 2022-08-23 INFLUENZA VACCINE [facility] 14:05:13 [code = INFLUENZA VACCINE] Future Scheduled Test 2022-08-23 Hepatitis C screening [facility] 14:05:13 (procedure) [code = [id number]] Future Scheduled Test 2022-08-23 SHINGLES VACCINES (1 [facility] 14:05:13 of 2) [code = SHINGLES VACCINES (1 of 2)] Future Scheduled Test 2022-08-23 65+ PNEUMOCOCCAL [facility] 14:05:13 VACCINE (1 - PCV) [code = 65+ PNEUMOCOCCAL VACCINE (1 - PCV)] Future Scheduled Test 2022-08-23 COVID-19 VACCINE ([address] [place] [address] 14:05:13 Booster for Moderna series) [code = COVID-19 VACCINE (3 - Booster for Moderna series)] Future Scheduled Test 2022-08-23 INFLUENZA VACCINE [facility] 14:05:13 [code = INFLUENZA VACCINE] Diagnostic Test 2022-07-03 urinalysis, dipstick [facility] Pending 00:00:00 [code = urinalysis, Group dipstick] Diagnostic Test 2022-07-03 PSA, serum or plasma [facility] Pending 00:00:00 [code = PSA, serum or Group plasma] Future Scheduled Test 2021-12-15 HEPATITIS B VACCINES [facility] 19:05:59 (1 of 3 - 3-dose series) [code = HEPATITIS B VACCINES (1 of 3 - 3-dose series)] Future Scheduled Test 2021-12-15 Hepatitis C screening [facility] 19:05:59 (procedure) [code = [id number]] Future Scheduled Test 2021-12-15 SHINGLES VACCINES (1 [facility] 19:05:59 of 2) [code = SHINGLES VACCINES (1 of 2)] Future Scheduled Test 2021-12-15 65+ PNEUMOCOCCAL [facility] 19:05:59 VACCINE (1 - PCV) [code = 65+ PNEUMOCOCCAL VACCINE (1 - PCV)] Future Scheduled Test 2021-12-15 COVID-19 VACCINE (3 [facility] 19:05:59 Booster for Moderna series) [code = COVID-19 VACCINE (3 - Booster for Moderna series)] Future Scheduled Test 2021-12-15 INFLUENZA VACCINE [facility] 19:05:59 [code = INFLUENZA VACCINE] Future Scheduled Test 2021-12-15 HEPATITIS B VACCINES [facility] 19:05:59 (1 of 3 - 3-dose series) [code = HEPATITIS B VACCINES (1 of 3 - 3-dose series)] Future Scheduled Test 2021-12-15 Hepatitis C screening [facility] 19:05:59 (procedure) [code = [id number]] Future Scheduled Test 2021-12-15 SHINGLES VACCINES (1 [facility] 19:05:59 of 2) [code = SHINGLES VACCINES (1 of 2)] Future Scheduled Test 2021-12-15 65+ PNEUMOCOCCAL Me [facility] 19:05:59 VACCINE (1 - PCV) [code = 65+ PNEUMOCOCCAL VACCINE (1 - PCV)] Future Scheduled Test 2021-12-15 COVID-19 VACCINE (3 - [facility] 19:05:59 Booster for Moderna series) [code = COVID-19 VACCINE (3 - Booster for Moderna series)] Future Scheduled Test 2021-12-15 INFLUENZA VACCINE [facility] 19:05:59 [code = INFLUENZA VACCINE] Instructions [facility] Encounters Start End Encounter Admission Attending Care Care Encounter Source Date/Time Date/Time Type Type Clinicians Facility Department ID 2022-09-12 2022-09-14 Inpatient ER Glass, [facility] [id number] 12:29:00 11:09:00 Skyler -[id number] [facility] 2022-08-13 2022-08-13 Refill Christian Fernandez 1.2.840.1 [id number] [facility] 00:00:00 00:00:[address] 3.430.2.7 Hospit a .3.158444 l .8 2022-08-13 2022-08-13 Christian Maurer 1.2.840.1 [id number] [facility] 00:00:00 00:00:[address] 3.430.2.7 Hospit a .3.247463 l .8 2022-07-22 2022-07-22 Saleem Daugherty 1.2.840.1 [id number] [facility]i 00:00:00 00:00:[address] 3.430.2.7 Hospit a .3.394744 l .8 2022-07-22 2022-07-22 Refadan Daugherty, 1.2.840.1 [id number] [facility] 00:00:00 00:00:[address] 3.430.2.7 Hospit a .3.060334 l .8 2022-07-03 2022-07-03 Outpatient PAUL SNOW [facility] [id number] [facility] 12:41:00 12:41:00 [facility] -[id number] [facility] 2022-07-03 2022-07-03 Darling [place] - [id number] [facility] 00:00:00 00:00:00 Discovery Ganesh RECONCILIATION ANALYST-C: [address] [facility] [place], [place] - [address] [place] [address] , Ph. 2022-06-24 2022-06-24 Outpatient Deandre [facility] [id number] [facility] 00:00:00 00:00:00 0308 Medical Group 2022-06-19 2022-06-19 Christian Maurer 1.2.840.1 [id number] [facility]i 00:00:00 00:00:[address] 3.430.2.7 Hospit a .3.317211 l .8 2022-06-19 2022-06-19 Christian Maurer 1.2.840.1 [id number] [facility] 00:00:00 00:00:[address] 3.430.2.7 Hospit a .3.788371 l .8 2022-05-27 2022-05-27 Telephone Spheeris, 1.2.840.1 [id number] [facility] 00:00:00 00:00:[address] Gonzalez 3.430.2.7 Hospit a .3.952880 l .8 2022-05-27 2022-05-27 Telephone Spheeris, 1.2.840.1 [id number] [facility] 00:00:00 00:00:[address] Gonzalez 3.430.2.7 Hospit a .3.972699 l .8 2022-05-24 2022-05-24 Telephone Timbo, 1.2.840.1 [id number] Methodi 00:00:00 00:00:00 Baniqua S [address].1.[address] 3.430.2.7 Hospit a .3.516757 l .8 2022-05-24 2022-05-24 Telephone [place], 1.2.840.1 [id number] [facility]i 00:00:00 00:00:00 Baniqua S [address]17.1.[address] 3.430.2.7 Hospit a .3.062653 l .8 2022-05-22 2022-05-22 Office Spheeris, 1.2.840.1 [id number] [facility] 13:15:00 14:04:52 Visit Poly 94331.1.[address] Gonzalez 3.430.2.7 Hospit a .3.622417 l .8 2022-05-22 2022-05-22 Office Spheeris, 1.2.840.1 [id number] [facility]i 13:15:00 14:04:52 Visit Poly 98911.1.[address] Gonzalez 3.430.2.7 Hospit a .3.939494 l .8 2022-05-22 2022-05-22 Travel 1.2.840.1 1.2.701.218 [id number] [facility] 00:00:00 00:00:[address] 3.430.2.7 0.2.7.3.698 Ho spita .3.423398 084.8 l .8 2022-05-22 2022-05-22 Travel 1.2.840.1 1.2.079.693 [id number] [facility]i 00:00:00 00:00:[address] 3.430.2.7 0.2.7.3.698 Ho spita .3.731181 084.8 l .8 2022-05-13 2022-05-13 Telephone [place], 1.2.840.1 [id number] [facility]i 00:00:00 00:00:00 Baniqua S [address].1.[address] 3.430.2.7 Hospit a .3.625911 l .8 2022-05-13 2022-05-13 Telephone Spheeris, 1.2.840.1 [id number] [facility]i 00:00:00 00:00:[address] Gonzalez 3.430.2.7 Hospit a .3.701314 l .8 2022-05-13 2022-05-13 Telephone Spheeris, 1.2.840.1 [id number] [facility]i 00:00:00 00:00:[address] Gonzalez 3.430.2.7 Hospit a .3.378859 l .8 2022-05-13 2022-05-13 Telephone Timbo, 1.2.840.1 [id number] [facility]i 00:00:00 00:00:00 Baniqua S [address] 3.430.2.7 Hospit a .3.170691 l .8 2022-05-10 2022-05-10 Outpatient Patricia BHANDARI [facility] [id number] [facility] 00:00:00 00:00:00 [facility] 2022-05-10 2022-05-10 Darling BHANDARI [place] - [id number] [facility] 00:00:00 00:00:00 Discovery johnathon Glass RECONCILIATION ANALYST-C: [address] [facility] [address], [facility], [place] [address] , Ph. 2022-04-11 2022-04-27 Outpatient ANUP PIERRE, [facility] [id number] [place] 09:59:00 00:01:00 SPHEERIS -[id number] [facility] 2022-04-09 2022-04-09 Outpatient ANUP PIERRE, [facility] [id number] [place] 09:52:00 09:52:00 SPHEERIS -[id number] [facility] 2022-04-04 2022-04-04 Outpatient ANUP PIERRE, [facility] [id number] [place] 10:00:00 10:00:00 SPHRIS -[id number] [facility] 2022-04-02 2022-04-02 Outpatient ANUP IPERRE, [facility] [id number] [place] 10:00:00 10:00:00 SPHEERIS -[id number] [facility] 2022-03-28 2022-03-28 Outpatient ANUP PIERRE, [facility] [id number] [place] 07:18:00 07:18:00 SPHEERIS -[id number] [facility] 2022-03-26 2022-03-27 ambulatory [id number] 10:00:00 23:59:00 [id number]-[id number] 91 -80cd-e8d [id number] bcd 2022-03-26 2022-03-27 Outpatient ANUP PIERRE, [facility] [id number] 10:00:00 00:01:00 SPHEERIS -[id number] [facility] 2022-03-20 2022-03-20 Outpatient ANUP PIERRE, [facility] [id number] 10:00:00 10:00:00 SPHEERIS -[id number] [facility] 2022-03-19 2022-03-19 Outpatient ANUP PIERRE, [facility] [id number] 09:00:00 09:00:00 SPHEERIS -[id number] da [facility] 2022-03-14 2022-03-14 Outpatient ANUP PIERRE, [facility] [id number] 10:00:00 10:00:00 SPHEERIS -[id number] da [facility] 2022-03-08 2022-03-08 Outpatient ANUP PIERRE, [facility] [id number] 14:00:00 14:00:00 SPHEERIS -[id number] da [facility] 2022-03-05 2022-03-05 Outpatient ANUP PIERRE, [facility] [id number] 09:53:00 09:53:00 SPHEERIS -[id number] da [facility] 2022-02-27 2022-02-27 Outpatient ANUP PIERRE, [facility] [id number] 07:41:00 07:41:00 SPHEERIS -[id number] [facility] 2022-02-25 2022-02-25 ambulatory [id number] 16:00:00 23:59:00 [id number]-[id number] -80cd-[id number] bcd 2022-02-25 2022-02-25 Outpatient ANUP PIERRE, [facility] [id number] [place] 16:00:00 00:01:00 SPHEERIS -[id number] [facility] 2022-02-20 2022-02-20 Outpatient ANUP PIERRE, [facility] [id number] [place] 16:00:00 16:00:00 SPHEERIS -[id number] da [facility] 2022-02-19 2022-02-19 Outpatient ANUP PIERRE, [facility] [id number] [place] 16:00:00 16:00:00 SPHEERIS -[id number] da [facility] 2022-02-15 2022-02-15 Outpatient ANUP PIERRE, [facility] [id number] [place] 16:00:00 16:00:00 SPHEERIS -[id number] da [facility] 2022-02-13 2022-02-13 Outpatient ANUP PIERRE, [facility] [id number] [place] 15:00:00 15:00:00 SPHEERIS -[id number] [facility] 2022-02-08 2022-02-08 Outpatient ANUP PIERRE, [facility] [id number] [place] 10:00:00 10:00:00 SPHEERIS -[id number] [facility] 2022-02-06 2022-02-06 Outpatient EL POLY, [facility] [id number] [place] 10:59:00 10:59:00 SPHEERIS -[id number] [facility] 2022-02-05 2022-02-05 Office Christian Fernandez 1.2.840.1 [id number] Methodi 13:15:00 14:10:35 Visit Poly Noriega 79605.1.[address] 3.430.2.7 Hospit a .3.019638 l .8 2022-02-05 2022-02-05 Office FernandezChristian 1.2.840.1 [id number] Methodi 13:15:00 14:10:35 Visit Poly Noriega 50987.1.[address] 3.430.2.7 Hospit a .3.214879 l .8 2022-02-05 2022-02-05 Travel 1.2.840.1 1.2.765.720 5566 [id number] Methodi 00:00:00 00:00:[address] 3.430.2.7 0.2.7.3.698 Ho spita .3.972115 084.8 l .8 2022-02-05 2022-02-05 Travel 1.2.840.1 1.2.902.013 7998 [id number] Methodi 00:00:00 00:00:[address] 3.430.2.7 0.2.7.3.698 Ho spita .3.300612 084.8 l .8 2022-01-22 2022-01-22 Office Gaston, 1.2.840.1 [id number] 8030 Methodi 11:00:00 12:22:40 Visit Josey Kruse 26890.1.[address] 3.430.2.7 Hospit a .3.920994 l .8 2022-01-22 2022-01-22 Office [place], 1.2.840.1 [id number] 2310 Methodi 11:00:00 12:22:40 Visit Josey Kruse 44696.1.[address] 3.430.2.7 Hospit a .3.808214 l .8 2022-01-22 2022-01-22 Travel 1.2.840.1 1.2.651.507 8957 285319 Methodi 00:00:00 00:00:[address] 3.430.2.7 0.2.7.3.698 Ho spita .3.607803 084.8 l .8 2022-01-22 2022-01-22 Travel 1.2.840.1 1.2.405.538 6246 [id number] Methodi 00:00:00 00:00:[address] 3.430.2.7 0.2.7.3.698 Ho spita .3.205363 084.8 l .8 2022-01-20 2022-01-20 Christian Maurer 1.2.840.1 [id number] 21 [id number] Methodi 00:00:00 00:00:[address] 3.430.2.7 Hospit a .3.214231 l .8 2022-01-20 2022-01-20 Christian Maurer 1.2.840.1 [id number] 21 [id number] Methodi 00:00:00 00:00:[address] 3.430.2.7 Hospit a .3.584292 l .8 2022-01-14 2022-01-14 Office [place], 1.2.840.1 [id number] 4266 Methodi 13:00:00 15:53:46 Visit Josey Kruse 02454.1.[address] 3.430.2.7 Hospit a .3.196645 l .8 2022-01-14 2022-01-14 Office [place], 1.2.840.1 [id number] 6216 Methodi 13:00:00 15:53:46 Visit Josey Kruse 62800.1.[address] 3.430.2.7 Hospit a .3.723348 l .8 2022-01-14 2022-01-14 Travel 1.2.840.1 1.2.975.883 2161 786412 Methodi 00:00:00 00:00:[address] 3.430.2.7 0.2.7.3.698 Ho spita .3.530950 084.8 l .8 2022-01-14 2022-01-14 Travel 1.2.840.1 1.2.725.735 8113 829232 Methodi 00:00:00 00:00:[address] 3.430.2.7 0.2.7.3.698 Ho spita .3.609536 084.8 l .8 2022-01-01 2022-01-01 Office Christian Fernandez 1.2.840.1 [id number] Methodi 14:30:00 15:09:[address] 3.430.2.7 Hospit a .3.255664 l .8 2022-01-01 2022-01-01 Office Christian Fernandez 1.2.840.1 [id number] Methodi 14:30:00 15:09:[address] 3.430.2.7 Hospit a .3.059976 l .8 2022-01-01 2022-01-01 Outpatient Donnie_Deepak [facility] [id number] 022 [place] 00:00:00 00:00:00 0906 Medical Group 2022-01-01 2022-01-01 Travel 1.2.840.1 1.2.870.735 7812 075696 Methodi 00:00:00 00:00:[address] 3.430.2.7 0.2.7.3.698 Ho spita .3.576436 084.8 l .8 2022-01-01 2022-01-01 Travel 1.2.840.1 1.2.516.357 4726 419173 Methodi 00:00:00 00:00:[address] 3.430.2.7 0.2.7.3.698 Ho spita .3.333449 084.8 l .8 2021-12-27 2021-12-27 Outpatient A_Byrd [facility] [id number] [place] 00:00:00 00:00:00 09 [facility] 2021-12-26 2021-12-26 Outpatient A_Byrd [facility] [id number] [id number] [place] 00:00:00 00:00:00 0831 [facility] 2021-12-26 2021-12-26 Lyric N [facility] [place] - [id number] M atagor 00:00:00 00:00:00 MD Deepak: [address] Group [facility] [address] [place] [address] , Ph. 2021-12-25 2021-12-25 Outpatient Yan_W [facility] [id number] 022 [place] 00:00:00 00:00:00 829 [facility] 2021-12-24 2021-12-24 Emergency ER Gladis [facility] [id number] [place] 10:10:00 17:00:00 Tiki [id number] [facility] 2021-07-17 2021-07-17 Office Dat, 1.2.840.1 [id number] 0337 Methodi 13:45:00 14:30:17 Visit Mitul Jernigan 07588.1.[address] 3.430.2.7 Hospit a .3.354109 l .8 2021-07-17 2021-07-17 Travel 1.2.840.1 1.2.079.069 3901 003691 Methodi 00:00:00 00:00:[address] 3.430.2.7 0.2.7.3.698 Ho spita .3.319288 084.8 l .8 2021-06-28 2021-06-28 Outpatient Yan_W [facility] [id number] [id number] [place] 02:33:00 02:33:00 0303 [facility] 2021-06-28 2021-06-28 Lyric Saleem [facility] [place] - [id number] M at[place] 00:00:00 00:00:00 MD Deepak: [address] Group [facility] - [address] [place] [address] , Ph. 2021-06-25 2021-06-25 Telephone Christian Fernandez 1.2.840.1 [id number] Methodi 00:00:00 00:00:[address] 3.430.2.7 Hospit a .3.188690 l .8 2021-06-15 2021-06-15 Office Christian Fernandez 1.2.840.1 [id number] Methodi 11:00:00 12:07:[address] 3.430.2.7 Hospit a .3.443730 l .8 2021-06-15 2021-06-15 Travel 1.2.840.1 1.2.666.438 7140 086574 Methodi 00:00:00 00:00:[address] 3.430.2.7 0.2.7.3.698 Ho spita .3.677008 084.8 l .8 2021-04-30 2021-04-30 Orders Garrett, 1.2.840.1 [id number] 69561 75378 Methodi 00:00:00 00:00:[address] Only Geeta 13267.1.[address] 3.430.2.7 Hospit a .3.166067 l .8 2021-03-28 2021-03-28 Outpatient Herber_W [facility] [id number] [place] 10:52:00 10:52:00 1201 [facility] 2021-03-28 2021-03-28 Mark Herber [facility] [place] - [id number] [place] 00:00:00 00:00:00 : Guillaume [facility] [address] [place] [address], Otolaryngol [facility] [address] , Ph. 2020-12-07 2020-12-07 Outpatient Donnie_Byodalys [facility] [id number] [place] 11:28:00 11:28:00 0812 [facility] 2020-12-07 2020-12-07 Outpatient LYRIC GARCIA [facility] D000 [id number] [place] 11:08:00 11:08:00 -[id number] [facility] 2020-12-07 2020-12-07 Lyric Saleem [facility] [place] - [id number] M at[place]or 00:00:00 00:00:00 MD Deepak: [address], [place] [address] , Ph. 2020-12-07 2020-12-07 Outpatient CHRISTIAN FERNANDEZ [facility] 542 [id number] [place] 00:00:00 00:00:[address] 2020-11-16 2020-11-16 Outpatient ALLIE, [facility] [id number] [place] 00:00:00 00:00:00 JUANPABLO [address] 2020-11-09 2020-11-09 Outpatient A_Byrd [facility] [id number] [place] 03:50:00 03:50:00 0715 [facility] 2020-11-09 2020-11-09 Outpatient A_Byrd [facility] [id number] [place] 03:50:00 03:50:00 0811 [facility] 2020-09-08 2020-09-08 Outpatient CHRISTIAN VILLAFUERTE [facility] D00 [id number] [place] 08:27:00 08:27:00 -[id number] [facility] 2020-08-25 2020-08-25 Outpatient CHRISTIAN FERNANDEZ [facility] 872 [id number] [place] 00:00:00 00:00:[address] 2020-05-29 2020-05-29 [facility] [id number] [place] 00:00:00 00:00:[address] 2020-05-29 2020-05-29 Outpatient CHRISTIAN FERNANDEZ [facility] [id number] [place] 00:00:00 00:00:[address] 2020-05-29 2020-05-29 Outpatient CHRISTIAN FERNANDEZ [facility] 517 [id number] [place] 00:00:00 00:00:[address] 2020-04-25 2020-04-25 [facility] [id number] [place] 00:00:00 00:00:[address] 2020-04-25 2020-04-25 Outpatient CHRISTIAN FERNANDEZ [facility] 478 [id number] [place] 00:00:00 00:00:[address] 2020-04-14 2020-04-14 Outpatient CHRISTIAN FERNANDEZ [facility] [id number] [place] 00:00:00 00:00:[address] 2020-04-14 2020-04-14 [facility] [id number] [place] 00:00:00 00:00:[address] 2020-03-15 2020-03-15 Outpatient A_Byrd [facility] [id number] [place] 02:24:00 02:24:00 1118 [facility] 2020-03-02 2020-03-02 Outpatient CHRISTIAN FERNANDEZ [facility] [id number] [place] 00:00:00 00:00:[address] 2020-02-28 2020-02-28 Outpatient [facility] [id number] [place] 00:00:00 00:00:[address] 2020-01-26 2020-01-26 Outpatient A_Byrd [facility] [id number] [place] 10:55:00 10:55:00 0930 [facility] 2020-01-24 2020-01-24 Outpatient CHRISTIAN FERNANDEZ [facility] 859 [id number] [place] 00:00:00 00:00:00 086 Method i 2019-12-31 2019-12-31 Outpatient CHRISTIAN FERNANDEZ [facility] 309 [id number] [place] 00:00:00 00:00:00 278 Method i 2019-11-04 2019-11-04 Outpatient A_Byrd [facility] [id number] [place] 07:08:00 07:08:00 0709 [facility] 2019-11-04 2019-11-04 Lyric Saleem MM [place] - [id number] M at[place] 00:00:00 00:00:00 MD Deepak: [address] [employer] [facility] [place] - [address], [facility], [place] [address] , Ph. 2019-10-21 2019-10-21 Outpatient A_Byrd [facility] [id number] [place] 12:54:00 12:54:00 0625 [facility] 2019-10-21 2019-10-21 Outpatient CHRISTIAN FERNANDEZ [facility] 256 [id number] [place] 00:00:00 00:00:00 532 Method i 2019-10-21 2019-10-21 Outpatient CHRISTIAN FERNANDEZ [facility] [id number] [place] 00:00:00 00:00:00 991 Method i 2019-10-20 2019-10-20 Outpatient A_Byrd [facility] [id number] [place] 10:58:00 10:58:00 0624 Medical [facility] 2019-10-19 2019-10-19 Outpatient A_Byrd [facility] [id number] [place] 09:19:00 09:19:00 0623 Medical [facility] 2019-10-19 2019-10-19 Meek [facility] [place] - [id number] M at[place]or 00:00:00 00:00:00 Boo Palmer MD: Medical Medica [address], [place] [address] , Ph. [phone] 2019-10-12 2019-10-12 Outpatient A_Byrd [facility] [id number] [place] 10:22:00 10:22:00 0616 Medical [facility] 2019-10-08 2019-10-08 Outpatient EL TEODOROMATTY BobbyNN [facility] D00 [id number] [place] 07:48:00 07:48:00 -[id number] [facility] 2019-10-07 2019-10-07 Outpatient A_Byrd [facility] [id number] [place] 05:39:00 05:39:00 0611 Medical [facility] 2019-10-07 2019-10-07 Lyric Saleem [facility] [place] - [id number] M at[place] 00:00:00 00:00:00 MD Deepak: [employer] [address] [place] [address] [address] [address] , Ph. 2019-10-01 2019-10-01 Outpatient A_Byrd [facility] [id number] [place] 01:02:00 01:02:00 0610 Medical Group 2019-09-23 2019-09-23 Outpatient A_Byrd [facility] [id number] [place] 12:06:00 12:06:00 0528 Medical Group 2019-09-17 2019-09-17 Outpatient A_Byrd [facility] [id number] [place] 02:41:00 02:41:00 0522 Medical Group 2019-09-16 2019-09-16 Outpatient A_Byrd [facility] [id number] [place] 04:57:00 04:57:00 0521 Medical Group 2019-09-16 2019-09-16 Meek [facility] [place] - [id number] M at[place] 00:00:00 00:00:00 Boo Palmer MD: Medical [facility] [address], [place] [address] , Ph. [phone] 2019-09-09 2019-09-09 Outpatient EL SOMMER FERNANDON [facility] D000 [id number] [place] 11:50:00 11:50:00 -[id number] [facility] 2019-09-09 2019-09-09 Outpatient A_Byrd [facility] [id number] [place] 06:22:00 06:22:00 0514 Medical Group 2019-09-09 2019-09-09 Lyric Saleem [facility] [place] - [id number] M at[place]or 00:00:00 00:00:00 MD Deepak: [address], [facility] [address] , Ph. 2019-09-07 2019-09-07 Outpatient A_Byrd [facility] [id number] [place] 06:53:00 06:53:00 0512 Medical [facility] 2019-09-07 2019-09-07 Lyric Saleem [facility] [place] - [id number] M at[place]or 00:00:00 00:00:00 MD Deepak: [address], [facility] [address] , Ph. 2019-09-06 2019-09-06 Outpatient [facility] [id number] [place] 03:43:00 03:43:00 0511 Medical Group 2019-06-03 2019-06-03 Outpatient A_Byrd [facility] [id number] [place] 10:36:00 10:36:00 0206 da Medical Group 2019-05-20 2019-05-20 Outpatient A_Byrd [facility] [id number] [place] 03:39:00 03:39:00 0123 Medical Group 2019-05-19 2019-05-19 Outpatient A_Byrd [facility] [id number] [place] 02:57:00 02:57:00 0122 Medical Group 2019-05-19 2019-05-19 Mary [facility] [place] - [id number] M at[place]or 00:00:00 00:00:00 Alyssa Abbasi Medical Medical OFFICE MACHINES WIRER: [address] [facility] [address], [place] [address] , Ph. 2017-01-22 2017-01-22 Outpatient LYRIC GARCIA [facility] D000 [id number] [place] 10:10:00 10:10:00 -[id number] [facility] 2016-07-09 2016-07-09 Outpatient ANUP LUGO [facility] [id number] [place] 07:11:00 07:11:00 HALLIE -[id number] [facility] 2015-03-16 2015-03-16 Emergency ER PJ BRYSON [facility] [id number] [place] 10:22:00 11:44:00 -[id number] [facility] 2014-08-19 2014-08-19 Outpatient ANUP LUGO [facility] [id number] [place] 08:08:00 08:08:00 HALLIE -[id number] [facility] 2011-07-21 2011-07-21 Emergency ER SHAH, [facility] [id number] [place] 15:26:00 17:33:00 IRINA -[id number] [facility] 2009-03-10 2009-03-10 Outpatient ANUP LUGO [facility] [id number] [place] 09:00:00 09:00:00 HALLIE -[id number] [facility] 2006-09-04 2006-09-04 Outpatient ANUP DENTON [facility] [id number] [place] 05:59:00 05:59:00 BOO [id number] [facility] 1999-09-30 1999-10-01 Emergency ER JOSE, [facility] [id number] [place] 20:35:00 00:30:00 EVANGELINA [id number] [facility] Results Test Description Test Time Test Comments Results Result Comments Source total prostate screening 2022-07-03 15:04:00 Test Item Value Reference Range Interpretation Comme nts total prostate screening (test code = total prostate 2.02 NG/mL 0 .0-4.00 screening) [facility] - [id number] 12:23:00 Test Item Value Reference Range Interpretation Comments Leukocytes (test code = Trace Leukocytes) Nitrite (test code = negative Nitrite) Urobilinogen (test code = 1 Urobilinogen) Protein (test code = Negative Protein) pH (test code = pH) 5.5 Blood (test code = Blood) Non-Hemolyzed: Trace Specific [place] (test 1.030 code = Specific [place]) Ketone (test code = Negative Ketone) Bilirubin (test code = Negative Bilirubin) Glucose (test code = Negative Glucose) Appearance (test code = Clear Appearance) Color (test code = Color) Dark Yellow [facility] panel - [id number] 11:42:00 Test Item Value Reference Range Interpretation Comments Leukocytes (test code = Negative Leukocytes) Nitrite (test code = negative Nitrite) Urobilinogen (test code = .2 Urobilinogen) Protein (test code = Negative Protein) pH (test code = pH) 7.0 Blood (test code = Blood) Hemolyzed: Trace Specific [place] (test code 1.020 = Specific [place]) Ketone (test code = Ketone) Negative Bilirubin (test code = Negative Bilirubin) Glucose (test code = Negative Glucose) Appearance (test code = Clear Appearance) Color (test code = Color) Yellow [facility]2022-09-07 16:10:00 Test Item Value Reference Range Interpretation Comments Ammonia (test code = 39 ug/dL 31-169 34320-9) ADRYAN (test code = ADRYAN) Performed at: [address] [place] [address] [id number] Director: Bruce Garcia MD, Phone: [phone] [place] 482182-09-07 16:10:00 Test Item Value Reference Range Interpretation Comments Ammonia (test code = 39 ug/dL 31-169 96232-2) ADRYAN (test code = ADRYAN) Performed at: [address] [place] [address] [id number] Director: Bruce Garcia MD, Phone: [phone] [place] 482182-09-07 16:10:00 Test Item Value Reference Range Interpretation Comments Ammonia (test code = 39 ug/dL 31-169 14345-9) ADRYAN (test code = ADRYAN) Performed at: [facility] [id number] Director: Bruce Garcia MD, Phone: [phone] [facility]2022-09-07 16:10:00 Test Item Value Reference Range Interpretation Comments Ammonia (test code = 39 ug/dL 31-169 14194-6) ADRYAN (test code = ADRYAN) Performed at: - [facility] [address] [id number] Director: Bruce Garcia MD, Phone: [phone] [facility] pathology [id number] 06:35:00 Test Item Value Reference Range Interpretation Comments Surgical pathology see separate pathology study (test code = report. 25139-4) [facility] [id number] 06:35:00 Test Item Value Reference Range Interpretation Comments Surgical pathology see separate pathology study (test code = report. 38862-4) [facility] W Reflex Culture panel - Urine 2019-09-09 10:15:00 Test Item Value Reference Range Interpretation Comments Color of Urine by Auto (test light yellow code = 47380-4) Appearance of Urine (test code clear clear = 5767-9) Glucose [Presence] in Urine by negative negative Automated test strip (test code = 27218-0) Bilirubin.total [Mass/volume] negative negative in Urine (test code = 1978-6) Ketones [Mass/volume] in Urine negative negative by Automated test strip (test code = 33676-4) Specific gravity of Urine by 1.017 1.003-1.030 Automated test strip (test code = 65072-3) blood urine (test code = blood trace negative H urine) pH of Urine (test code = 6.500 5-9 2756-5) protein urine (UA) (test code = negative negative protein urine (UA)) Urobilinogen [Presence] in normal 0.2-1.0 Urine (test code = 92698-0) Nitrite [Presence] in Urine by negative negative Test strip (test code = 5802-4) Leukocyte esterase [Presence] negative negative in Urine by Automated test strip (test code = 55320-8) Leukocytes [#/area] in Urine <1 0-5 sediment by Automated count (test code = 18851-4) Epithelial cells [Presence] in <1 0-5 Urine sediment by Light microscopy (test code = 71191-2) Bacteria identified in Urine by none detected none detect Culture (test code = 630-4) Casts [#/area] in Urine none detected none detect sediment by Automated count (test code = 89974-1) urine culture added? (test code no = urine culture added?) [facility] W Auto Differential panel - [id number] 10:15:00 Test Item Value Reference Range Interpretation Comments white blood count (test code = 6.8 K/uL 4.0-12.3 white blood count) red blood count (test code = red 4.47 M/uL 3.80-5.80 blood count) hemoglobin (test code = 13.6 g/dL 11.7-17.2 hemoglobin) hematocrit (test code = 41.7 % 35.0-51.0 hematocrit) MCV [Entitic volume] (test code = 93.3 fL 83-100 13456-8) mean corpuscular hemoglobin (test 30.4 pg 26.8-33.4 code = mean corpuscular hemoglobin) mean corpuscular HGB conc (test 32.6 g/dL 30-35 code = mean corpuscular HGB conc) red cell distribution width (test 12.3 % 12.0-14.0 code = red cell distribution width) platelet count (test code = 243 K/uL 175-450 platelet count) mean platelet volume (test code = 10.3 fL 9.4-12.6 mean platelet volume) Segmented neutrophils/100 60.2 % 44.7-82.4 leukocytes in Blood (test code = 63696-2) Immature granulocytes [#/volume] 0.0 K/uL 0.0-0.03 in Blood (test code = 90299-7) lymphocyte% (test code = 29.0 % 10.0-50.0 lymphocyte%) mono % (test code = mono %) 7.2 % 3.9-13.4 eos % (test code = eos %) 2.9 % 0.0-6.4 Basophils/100 leukocytes in 0.6 % 0.2-1.2 Unspecified specimen (test code = 58676-1) Band form neutrophils [#/volume] 4.08 K/uL 1.78-5.38 in Blood (test code = 90066-8) Lymphocytes [#/volume] in 2.0 K/uL 1.32-3.57 Unspecified specimen by Automated count (test code = 41036-6) mono # (test code = mono #) 0.49 K/uL 0.30-0.82 eos # (test code = eos #) 0.20 K/uL 0.04-0.54 basophil # (test code = basophil 0.04 K/uL 0.01-0.08 #) NRBC% (test code = NRBC%) 0 /100 WBC 0-0.2 NRBC# (test code = NRBC#) 0 K/u[facility] unspecified - [id number] 10:15:00NeutrophilsBandLymphocyteMonocyteEosinophilPlatelet EstimateMataNoxubee General HospitalHemoglobin A1c [Mass/volume] in [id number] 10:15:00 Test Item Value Reference Range Interpretation Comments Hemoglobin A1c [Mass/volume] in Blood 6.1 % 4.0-6.0 H (test code = 26005-7) [facility] 2000 [facility] - Serum or Plasma 2019-09-09 10:15:00 Test Item Value Reference Range Interpretation Comments Glucose [Mass/volume] in Serum or 97 mg/dL 82-115 Plasma (test code = 2345-7) Urea nitrogen [Mass/volume] in 15 mg/dL 8-23 Serum or Plasma (test code = 3094-0) osmolality calculated,serum (test 280 mOsm/kg 280-300 code = osmolality calculated,serum) creatinine (test code = 1.1 mg/dL 0.70-1.20 creatinine) glomerular filtration rate (test >60.00 code = glomerular filtration rate) Urea nitrogen/Creatinine [Mass 13.6 12-20 Ratio] in Serum or Plasma (test code = 3097-3) sodium level (test code = sodium 140 mmol/L 135-145 level) potassium level (test code = 4.1 mmol/L 3.5-5.2 potassium level) chloride level (test code = 104 mmol/L 98-108 chloride level) CO2 (test code = CO2) 26 mmol/L 21-32 anion gap (test code = anion gap) 14.1 mEq/L 12-20 calcium level (test code = 8.9 mg/dL 8.8-10.2 calcium level) total protein (test code = total 6.8 g/dL 6.6-8.7 protein) albumin (test code = albumin) 4.0 g/dL 3.5-5.2 globulin (test code = globulin) 2.8 gm/dL A/G ratio (test code = A/G ratio) 1.4 >1.0 bilirubin,total (test code = 0.4 mg/dL 0.0-1.2 bilirubin,total) AST/SGOT (test code = AST/SGOT) 30 U/L 15-40 Alanine aminotransferase 40 U/L 0-41 [Enzymatic activity/volume] in Serum or Plasma (test code = 1742-6) [facility] - Serum or [id number] 10:15:00 Test Item Value Reference Range Interpretation Comments cholesterol level (test code = 203 mg/dL 150-200 H cholesterol level) triglycerides level (test code = 70 mg/dL <150 triglycerides level) HDL cholesterol (test code = HDL 68 mg/dL >55 cholesterol) LDL cholesterol direct (test code = 139 mg/dL <100 H LDL cholesterol direct) cholesterol risk ratio (test code = 2.985 cholesterol risk ratio) [facility]Units/volume] in Serum or [id number] 10:15:00 Test Item Value Reference Range Interpretation Comments Thyrotropin [Units/volume] in 2.91 uIU/mL 0.36-3.74 Serum or Plasma (test code = 3016-3) [facility] W Reflex Culture panel - Urine 2019-09-09 10:15:00 Test Item Value Reference Range Interpretation Comments Color of Urine by Auto (test light yellow code = 38045-5) Appearance of Urine (test code clear clear = 5767-9) Glucose [Presence] in Urine by negative negative Automated test strip (test code = 18526-2) Bilirubin.total [Mass/volume] negative negative in Urine (test code = 1978-) Ketones [Mass/volume] in Urine negative negative by Automated test strip (test code = 95013-2) Specific gravity of Urine by 1.017 1.003-1.030 Automated test strip (test code = 46806-4) blood urine (test code = blood trace negative H urine) pH of Urine (test code = 6.500 5-9 2756-5) protein urine (UA) (test code = negative negative protein urine (UA)) Urobilinogen [Presence] in normal 0.2-1.0 Urine (test code = 41821-0) Nitrite [Presence] in Urine by negative negative Test strip (test code = 5802-4) Leukocyte esterase [Presence] negative negative in Urine by Automated test strip (test code = 38489-9) Erythrocytes [#/volume] in =1-5 0-5 Urine by Automated count (test code = 798-9) Leukocytes [#/area] in Urine <1 0-5 sediment by Automated count (test code = 27498-0) Epithelial cells [Presence] in <1 0-5 Urine sediment by Light microscopy (test code = 20075-4) Bacteria identified in Urine by none detected none detect Culture (test code = 630-4) Casts [#/area] in Urine none detected none detect sediment by Automated count (test code = 58169-5) urine culture added? (test code no = urine culture added?) [facility] W Auto Differential panel - [id number] 10:15:00 Test Item Value Reference Range Interpretation Comments white blood count (test code = 6.8 K/uL 4.0-12.3 white blood count) red blood count (test code = red 4.47 M/uL 3.80-5.80 blood count) hemoglobin (test code = 13.6 g/dL 11.7-17.2 hemoglobin) hematocrit (test code = 41.7 % 35.0-51.0 hematocrit) MCV [Entitic volume] (test code = 93.3 fL 83-100 96784-4) mean corpuscular hemoglobin (test 30.4 pg 26.8-33.4 code = mean corpuscular hemoglobin) mean corpuscular HGB conc (test 32.6 g/dL 30-35 code = mean corpuscular HGB conc) red cell distribution width (test 12.3 % 12.0-14.0 code = red cell distribution width) platelet count (test code = 243 K/uL 175-450 platelet count) mean platelet volume (test code = 10.3 fL 9.4-12.6 mean platelet volume) Segmented neutrophils/100 60.2 % 44.7-82.4 leukocytes in Blood (test code = 15024-0) Immature granulocytes [#/volume] 0.0 K/uL 0.0-0.03 in Blood (test code = 21087-0) lymphocyte% (test code = 29.0 % 10.0-50.0 lymphocyte%) mono % (test code = mono %) 7.2 % 3.9-13.4 eos % (test code = eos %) 2.9 % 0.0-6.4 Basophils/100 leukocytes in 0.6 % 0.2-1.2 Unspecified specimen (test code = 80809-9) Band form neutrophils [#/volume] 4.08 K/uL 1.78-5.38 in Blood (test code = 63022-7) Lymphocytes [#/volume] in 2.0 K/uL 1.32-3.57 Unspecified specimen by Automated count (test code = 82200-5) mono # (test code = mono #) 0.49 K/uL 0.30-0.82 eos # (test code = eos #) 0.20 K/uL 0.04-0.54 basophil # (test code = basophil 0.04 K/uL 0.01-0.08 #) NRBC% (test code = NRBC%) 0 /100 WBC 0-0.2 NRBC# (test code = NRBC#) 0 K/uL [facility]Different[facility], method unspecified - [id number] 10:15:00NeutrophilsBandLymphocyteMonocyteEosinophilPlatelet EstimateMataNoxubee General HospitalHemoglobin A1c [Mass/volume] in [id number] 10:15:00 Test Item Value Reference Range Interpretation Comments Hemoglobin A1c [Mass/volume] in Blood 6.1 % 4.0-6.0 H (test code = 80489-4) [facility] CenterComprehensive [facility] 1999 panel - Serum or Plasma 2019-09-09 10:15:00 Test Item Value Reference Range Interpretation Comments Glucose [Mass/volume] in Serum or 97 mg/dL 82-115 Plasma (test code = 2345-7) Urea nitrogen [Mass/volume] in 15 mg/dL 8-23 Serum or Plasma (test code = 3094-0) osmolality calculated,serum (test 280 mOsm/kg 280-300 code = osmolality calculated,serum) creatinine (test code = 1.1 mg/dL 0.70-1.20 creatinine) glomerular filtration rate (test >60.00 code = glomerular filtration rate) Urea nitrogen/Creatinine [Mass 13.6 12-20 Ratio] in Serum or Plasma (test code = 3097-3) sodium level (test code = sodium 140 mmol/L 135-145 level) potassium level (test code = 4.1 mmol/L 3.5-5.2 potassium level) chloride level (test code = 104 mmol/L 98-108 chloride level) CO2 (test code = CO2) 26 mmol/L 21-32 anion gap (test code = anion gap) 14.1 mEq/L 12-20 calcium level (test code = 8.9 mg/dL 8.8-10.2 calcium level) total protein (test code = total 6.8 g/dL 6.6-8.7 protein) albumin (test code = albumin) 4.0 g/dL 3.5-5.2 globulin (test code = globulin) 2.8 gm/dL A/G ratio (test code = A/G ratio) 1.4 >1.0 bilirubin,total (test code = 0.4 mg/dL 0.0-1.2 bilirubin,total) AST/SGOT (test code = AST/SGOT) 30 U/L 15-40 Alanine aminotransferase 40 U/L 0-41 [Enzymatic activity/volume] in Serum or Plasma (test code = 1742-6) Alkaline phosphatase [Enzymatic 81 U/L 40-130 activity/volume] in Serum or Plasma (test code = 6768-6) [facility] 1995 [facility] - Serum or [id number] 10:15:00 Test Item Value Reference Range Interpretation Comments cholesterol level (test code = 203 mg/dL 150-200 H cholesterol level) triglycerides level (test code = 70 mg/dL <150 triglycerides level) HDL cholesterol (test code = HDL 68 mg/dL >55 cholesterol) LDL cholesterol direct (test code = 139 mg/dL <100 H LDL cholesterol direct) cholesterol risk ratio (test code = 2.985 cholesterol risk ratio) [facility] CenterThyrotropin [Units/volume] in Serum or [id number] 10:15:00 Test Item Value Reference Range Interpretation Comments Thyrotropin [Units/volume] in 2.91 uIU/mL 0.36-3.74 Serum or Plasma (test code = 3016-3) [facility]
[2022-09-14 13:00] VITALS: BMI 16.9
[2022-09-14] MEDS ORDERED: ACETAMINOPHEN 500 MG TAB PO PRN (14:26)
[2022-09-14] MEDS ORDERED: ONDANSETRON 4 MG (ODT) TAB PO PRN (14:29)
[2022-09-14] MEDS ORDERED: DOCUSATE NA/SENNA CONC 1 TAB PO PRN (14:30)
[2022-09-14] MEDS: PANTOPRAZOLE 40MG TABLET PO SCH (16:23)
[2022-09-14 17:58] LABS: Specific Gravity 1.021 (1.005-1.030); Urine Bacteria <20 /HPF (<20); Urine Bilirubin NEGATIVE (Negative); Urine Blood 1+ (Negative); Urine Clarity Clear (Clear); Urine Color Light-Yellow (Yellow); Urine Crystals Unidentified Few /HPF (None Seen); Urine Glucose NEGATIVE (Negative); Urine Mucus Slight /HPF (None Seen); Urine Protein TRACE (Negative); Urine RBC <5 /HPF (None Seen); Urine Urobilinogen Normal (Normal); Urine pH 5.5 (5.0-7.0)
[2022-09-14] MEDS: SUCRALFATE 1 GM TABLET PO SCH (19:41)
[2022-09-14] MEDS: MEMANTINE HCL 10 MG TABLET PO SCH (19:41)
[2022-09-14] MEDS: QUETIAPINE 25 MG TAB PO SCH (19:41)
[2022-09-14] MEDS: GABAPENTIN 300 MG CAP PO SCH (19:41)
[2022-09-15] MEDS: LORAZEPAM 0.5 MG TABLET PO PRN (00:39)
[2022-09-15] MEDS ORDERED: PNEUMOCOCCAL VACCINE 0.5 ML IMVAC ONE (09:00)
[2022-09-15] MEDS: SUCRALFATE 1 GM TABLET PO SCH ×3 (09:14→20:02)
[2022-09-15] MEDS: CRANBERRY FRUIT EXTRACT 200 MG CAP PO SCH ×2 (09:14→20:01)
[2022-09-15] MEDS: PANTOPRAZOLE 40MG TABLET PO SCH ×2 (09:14→16:45)
[2022-09-15] MEDS: GABAPENTIN 300 MG CAP PO SCH ×2 (09:15→20:01)
[2022-09-15] MEDS: TAMSULOSIN 0.4 MG SR CAP PO SCH (09:15)
[2022-09-15] MEDS: MEMANTINE HCL 10 MG TABLET PO SCH ×2 (09:15→20:02)
[2022-09-15 11:33] LABS: Absolute Lymphocytes (CBC) 1.2 K/uL (0.7-4.9); Hematocrit 42.6 % (39.6-49.0); Lymphocytes % 17.9 % (15.3-44.8); MCV 90.9 fL (80-100); MPV 8.4 fL (7.6-11.3); RBC Red Blood Cell Count 4.68 M/uL (4.33-5.43)
[2022-09-15 11:58] LABS: Albumin 3.3 g/dL (3.4-5.0); Magnesium 1.3 mg/dL (1.6-2.4); Potassium 3.4 mEq/L (3.5-5.1); Prealbumin 16.3 mg/dL (20-40)
[2022-09-15] MEDS ORDERED: POTASSIUM CL SA 10 MEQ TAB PO ONE (17:00)
[2022-09-15] MEDS: DOCUSATE NA/SENNA CONC 1 TAB PO SCH (20:01)
[2022-09-15] MEDS: QUETIAPINE 25 MG TAB PO SCH (20:07)
[2022-09-16 06:30] LABS: Absolute Lymphocytes (CBC) 1.8 K/uL (0.7-4.9); Lymphocytes % 25.2 % (15.3-44.8); MCV 90.5 fL (80-100); MPV 8.2 fL (7.6-11.3); RBC Red Blood Cell Count 4.53 M/uL (4.33-5.43)
[2022-09-16 06:43] LABS: Potassium 3.5 mEq/L (3.5-5.1)
[2022-09-16] MEDS: PANTOPRAZOLE 40MG TABLET PO SCH ×2 (06:45→15:46)
[2022-09-16] MEDS: TAMSULOSIN 0.4 MG SR CAP PO SCH (07:30)
[2022-09-16] MEDS: CRANBERRY FRUIT EXTRACT 200 MG CAP PO SCH ×2 (07:30→19:06)
[2022-09-16] MEDS: MEMANTINE HCL 10 MG TABLET PO SCH ×2 (07:30→19:06)
[2022-09-16] MEDS: GABAPENTIN 300 MG CAP PO SCH ×2 (07:30→19:07)
[2022-09-16] MEDS: SUCRALFATE 1 GM TABLET PO SCH ×3 (07:31→16:54)
[2022-09-16] MEDS ORDERED: POTASSIUM CL SA 10 MEQ TAB PO SCH (08:00)
--- NOTE | 2022-09-16 08:26 | P.CNS ---
Date of Consult: 09/16/22 Reason for Consult: painful toenails Chief Complaint: painful toenails Allergies No Known Allergies Allergy (Verified 09/14/22 12:51) Home Medications: Gabapentin 300 mg PO BID 09/14/22 Memantine HCl 5 mg PO BID 09/14/22 Pantoprazole [Protonix Tab*] 40 mg PO DAILY 09/14/22 Quetiapine Fumarate [Seroquel] 50 mg PO BEDTIME 09/14/22 Sucralfate [Carafate*] 1 gm PO TID 09/14/22 Tamsulosin [Flomax*] 0.4 mg PO DAILY 09/14/22 - Past Medical/Surgical History Diabetic: No - Social History Alcohol use: No CD- Drugs: No Caffeine use: No Place of Residence: Home Review of Systems 10-point ROS is otherwise unremarkable Physical Examination Temp Pulse Resp BP Pulse Ox 97.8 F 81 17 139/77 96 09/16/22 06:52 09/16/22 06:52 09/16/22 06:52 09/16/22 06:52 09/16/22 06:52 General: Alert, In no apparent distress, Oriented x3 Cardiovascular: No edema, Abnormal pulses (0/4 dp/pt pulses bilateral) Capillary refill: >2 Seconds Musculoskeletal: No clubbing, No swelling, No contractures, No erythema, No tenderness, No warmth Integumentary: No rashes, No breakdown, No significant lesion, No tenderness/swelling, No erythema, No warmth, No cyanosis, Other (thickened hypertrophic bilateral hallux nails and left second digit nail. Elongated nails 3-5 left and 2-5 right) Neurological: Sensation intact Laboratory Data (last 24 hrs) 09/16/22 06:20: WBC 7.20, Hgb 13.7, Hct 41.0, Plt Count 228 09/16/22 06:20: Sodium 140, Potassium 3.5, BUN 17, Creatinine 0.91, Glucose 101 09/15/22 11:26: Sodium 140, Potassium 3.4 L, BUN 14, Creatinine 1.04, Glucose 94, Magnesium 1.3 L 09/15/22 11:26: WBC 6.80, Hgb 14.1, Hct 42.6, Plt Count 244 - Problems (1) Generalized atherosclerosis Current Visit: Yes Status: Acute (2) Tinea unguium Current Visit: Yes Status: Acute (3) Onychogryphosis Current Visit: Yes Status: Acute Conclusions/Impression: MEchanical debridement of nails at bedside Physician Review: Patient Assessed, Agree with Above Assessment and Plan
[2022-09-16] MEDS: CARBIDOPA/LEVODOPA 25/100 TAB PO SCH ×2 (12:22→19:06)
[2022-09-16] MEDS ORDERED: MAGNESIUM SULFATE 1 gm IVPB 1 GM/100 ML BAG IV ONE (13:16)
--- NOTE | 2022-09-16 13:17 | HP ---
Date of Admission: 09/14/2022 Time Of Service: 8 p.m. Chief Complaint: "I got weaker after being in the hospital." History Of Present Illness: Mr. Camacho is a 76-year-old right-handed patient with Parkinson disease who presented to [place] [facility] after 4 days of nausea, vomiting, diarrhea with abdominal pain. Even prior to that, he had been getting weaker for the last month where he was falling weekly. Prior to that, he was independent ambulating without an assistive device over 500 feet, taking care of his activities of daily living independently. At [place], he was diagnosed with gastroenteritis, upper GI bleed with melena and urinary tract infection. The GI Service and General Surgery evaluated the patient with the initial plan to perform an EGD. However, the EGD was not performed. Patient received IV fluids, antibiotics, on acid suppression with proton-pump inhibitor for the upper GI bleed, received IV fluids and Zofran for the gastritis. He did have medications for Parkinson disease continued. In addition to his Parkinson's symptoms, which is stiffness, slowing, and I spoke with his , she mentioned the ratcheting or bradykinesia that occurs, he has had hallucinations, which are not pleasant and the patient has not actually been treated for those. However, over the past few months and with the hospitalization at [place], he has become significantly weak and requires moderate assistance to maximum assistance for bed mobility, transfers and ambulation due to his high fall risk and stiffness with freezing. As a result, he requires aggressive physical, occupational, and possibly speech therapy to improve and regain his prior level of function. Given his complex medical issue of the GI bleed and requirement for continuous monitoring of his hemoglobin to determine if he requires blood transfusions and may have the involvement of GI service, patient is better placed in an inpatient rehabilitation unit where these services are easily accessible and he can have aggressive therapy. He is therefore admitted to the inpatient rehabilitation unit for physical, occupational, and speech therapy as needed. Past Medical History: Parkinson disease, dysphagia, polyneuropathy. Past Surgical History: None. Family History: Noncontributory. Allergies: NO KNOWN DRUG ALLERGIES. Medications: Tylenol Extra Strength 500 mg every 4 hours, gabapentin 300 mg twice daily, Ativan 0.5 mg twice daily for anxiety, Namenda 5 mg twice daily, Zofran 4 mg every 4 hours as needed, Protonix 40 mg twice daily, Seroquel 50 mg at bedtime, Senokot S 2 at bedtime, Carafate 1 g 3 times daily, Flomax 0.4 mg daily. Laboratory Studies: White blood cell count 6.0, hemoglobin 13.5, platelets 250. Sodium 142, potassium 3.4, glucose 107, BUN 16, creatinine 1.04, calcium 9.0. X-ray/imaging: A CT scan of the abdomen and pelvis on 09/12/2022 showed no acute abnormalities. There was diverticulosis without inflammation. There was a bladder wall thickening which may be secondary to underdistention. Social History: The patient lives with his . No alcohol, tobacco, or IV drug use. Family History: Noncontributory. Review of Systems: Mr. Camacho is resting in bed. He is in no significant distress. He is on the phone with his . I spoke with him and did the examination. He did report the stiffness and difficulty with his balance, gait, and incoordination and tendency to fall with freezing episodes. Otherwise, no fevers or chills. Myalgias are mild. There are mild arthralgias. No rash, headache, weight change. He does admit to hallucinations and some delusions and paranoid thinking and his does confirm that. Physical Examination: Vital Signs: Blood pressure 133/70, pulse 81, respiratory rate 17, temperature 97.5, oxygen saturation 96%. Weight 115 pounds, height 5 feet 9 inches, BMI 17. General: Mr. Camacho is resting comfortably in bed. HEENT: He is normocephalic, atraumatic. Sclerae anicteric. Oropharynx is moist. Neck: Supple. Chest: Clear. Heart: Regular. Extremities: No significant edema, cyanosis, or clubbing. Neurological: He has a mask-like facies with decreased excursions and smiling. He has mild bradykinesia. He is holding the phone and he is able to hold the phone. I am able to speak to his on speaker phone with the patient. He does have some ratcheting and cogwheeling noted in the upper extremities. No obvious tremors. In terms of his motor strength, he has diffuse weakness 4+ in upper and lower extremities proximally and distally. In the extremities, stocking-glove loss to light touch and temperature. Reflexes depressed, symmetric. His coordination appears slow, but intact, and for gait, he has ambulated with a gait belt with the physical therapist. Rehab And Medical Assessment And Plan: Mr. Camacho's rehabilitation impairment category is 06, neurologic condition and his impairment group code is 03.2 parkinsonism. His etiologic diagnosis is Parkinson disease. Active comorbids: Hallucinations, confusion, decreased mobility, decrease in physical functioning, some cognitive impairment, recent diarrhea, diverticulitis, edema, gastroesophageal reflux, dyslipidemia, hypertension, peripheral neuropathy, urinary tract infection, and the upper GI bleed. Plan: He will have physical, occupational, and likely speech therapy for 3.5 hours, 5 of 7 days. There is a prostate hypertrophy, continue Flomax 0.4 mg daily. For his bowel regimen, he will continue the Senokot S 2 at night. For the GE reflux and recent diverticulitis, continue Carafate 1 g daily. For psychotic features, he is on Seroquel 50 mg at night. Protonix also used to reduce acid buildup and GE reflux. Zofran for nausea. Namenda 5 mg twice daily for cognitive impairment. Continue Ativan at night for anxiety. Gabapentin 300 mg twice daily for diffuse pain and Tylenol 500 mg every 6 hours as well. Impact Of His Comorbidities: On his rehabilitation, given the recent GI bleed, he will be observed for stools to determine if there is ongoing GI bleed. Currently, his hemoglobin is in ideal state. Further in terms of DVT prophylaxis, SCDs will be used for now and as he is observed, may add Eliquis 2.5 mg twice daily. In addition, his hallucinations may become an issue. The potential for using Nuplazid was looked into, but it is not on formulary. He is currently on Seroquel, which potentially could worsen Parkinson disease, so that will be observed for. Rehab Specific Plan: 1. Mr. Camacho will have 3.5 hours for 5 of 7 days for physical, occupational, and speech therapy to improve his cognitive functioning, ability to perform his activities of daily living and to be able to ambulate 250 feet, up and down 10 steps with modified independence. 2. He will have [facility]iary to manage his multiple medical needs, and evaluate for the need for transfusion. For DVT prophylaxis, if need be, Doppler studies may be done and also for imaging as he has a potential for aspiration pneumonia given his Parkinson disease, and if need be, bed alarm will be placed as there is a potential for falling and maybe impulsive. 3. Mr. Camacho has a good understanding of the admission to the inpatient rehabilitation unit. He has a great potential to improve and will need all 3 disciplines that is physical, occupational, and speech therapy. If need be, he will receive help from Nutrition Service, Respiratory Service, Cardiology Service, Renal Service, GI Service given his medical issues. Due to his complex medical condition and risk of further complications, rehabilitation cannot be safely or effectively provided at a lower level of care such as a penitentiary. Barriers To Discharge: His barriers may include the GI bleed, but that is stable at this point. Also the potential for DVT given the recent GI bleed and to be careful about using anticoagulation, so he is on SCDs. In addition, his hallucination may make it difficult for him to rest at night and antipsychotics may be used. Estimated Length Of Stay: About 10 days. Disposition: Home with family. Prognosis: Good. Rehab Specific Goals: 1. To become independent with upper and lower body dressing. Max independent with 250 feet of ambulation using a rolling walker. 2. Independent up and down 10 steps. 3. Independent with cognitive functioning. 4. Independent with swallowing and eating. 5. His comorbid medical conditions will be adequately managed by penitentiary. I acknowledge I have personally performed a full physical examination on Mr. Darrion Camacho, no later than 24 hours after his admission to the inpatient rehabilitation unit and determined that he is able to tolerate the above course of treatment at an intensive level for a reasonable period of time. A detailed individualized plan of care for him will be completed by hospital day 4, based on the preadmission screen, admission history and physical, and therapy evaluations. LORNE/CHANTELLE Voice ID: [id number] JAYLEN
[2022-09-16] MEDS: MAGNESIUM OXIDE 400 MG TAB PO SCH (19:06)
[2022-09-16] MEDS: DOCUSATE NA/SENNA CONC 1 TAB PO SCH (19:07)
[2022-09-16] MEDS: ENSURE ENLIVE 237 ML CAN PO SCH (19:07)
[2022-09-16] MEDS: QUETIAPINE 25 MG TAB PO SCH (19:07)
[2022-09-16] MEDS: LORAZEPAM 0.5 MG TABLET PO PRN (20:26)
--- NOTE | 2022-09-16 20:47 | PN ---
Date of Progress Note: 09/16/2022 [facility] Progress Note Visit Time Of Service: 1:30 p.m. Subjective: Mr. Christensen is doing well. He is much improved in terms of his ability to ambulate and ge t around. Denies any significant pain or complaints. No difficulty with sleeping. He is eating wel l and otherwise doing well. Review of Systems: No fevers, chills, myalgias, or arthralgias. No rash, headache, or weight change. No psychiatric is sues. Physical Examination: Vital Signs: Blood pressure 139/77, pulse 81, respiratory rate 16, temperature 97.8, and oxygen satu ration 96%. Weight 115 pounds, height 5 feet 9 inches, BMI 17. General: Mr. Christensen is resting in bed. He is in no acute distress. HEENT: He is normocephalic, atraumatic. Sclerae anicteric. Oropharynx is pink and moist. Neck: Supple. Chest: Clear. Heart: Regular. Extremities: No clubbing, cyanosis, or edema. Neurologic: Alert and oriented to situation, place, and person. Mild masked face. Some bradykinesi a. No tremors. He is symmetric in terms of strength, sensation, coordination. Laboratory Studies: Complete blood count with differential is completely normal. Chemistries are al l unremarkable except chloride is slightly elevated 108. X-ray/imaging: None. Medications: Tylenol Extra Strength 500 mg every 4 hours as needed, carbidopa levodopa 2 tablets 3 t imes daily, gabapentin 300 mg twice daily, lorazepam 0.5 mg twice daily for anxiety, magnesium oxide 400 mg twice daily, Namenda 5 mg twice daily, Ensure Enlive 237 mL twice daily, Zofran 4 mg every 4 h ours as needed, Protonix 40 mg twice daily, Seroquel 50 mg at bedtime, Senokot-S 2 at bedtime, Carafa te 1 g 3 times daily, and Flomax 0.4 mg daily. Current Functional Status: Currently, Mr. Christensen was able to perform stand and pivot transfers with m inimum assistance using a rolling walker and without an assistive device. He performed [id number] transfers with minimum assistance. He ambulated 250 feet with minimum assistance without an assisti ve device and another 250 feet and then another 150 feet twice plus another 100 feet with minimal ass istance using a rolling walker. He ascended and descended 15 steps with contact guard assistance usi ng bilateral handrails. With occupational therapy, contact guard assistance was required for sit-to- stand transfers, standby assistance from wheelchair to edge of bed, to supine transfers. With speech therapy, he was evaluated today with long-term goals of demonstrating improved executive functioning skills from maximal assistance to moderate assistance, improve safety and independence for returning home. Progress Towards Rehabilitation Goals: Mr. Christensen is making excellent progress thus far in his short stay in the inpatient rehabilitation unit and his plan is to become independent with upper and lower body dressing, transferring, toileting, ambulating 250 feet independently up and down 10 to 20 steps independently and performing cognitive functioning independently. Assessment: Mr. Christensen is a 76-year-old patient admitted to the inpatient rehabilitation unit with Pa rkinson disease and debility. He has hallucinations, which actually he says are not bothersome. He does have decreasing confusion. He has comorbids of dyslipidemia, hypertension, peripheral neuropath y, urinary tract infection and a recent upper gastrointestinal bleed with diverticulitis. Those tiffany rbids are now mitigated. Plan: 1.Continue with physical, occupational, and speech therapy for 3.5 hours, 5 of 7 days. 2.Continue with Flomax for prostate hypertrophy. 3.Continue with Senokot-S for constipation. 4.Continue with proton pump inhibitor for GE reflux and continue Carafate for diverticulitis. 5.Continue Seroquel for psychosis. 6.Continue Namenda 5 mg twice daily for cognitive impairment and continue gabapentin 300 mg twice da sherri along with Tylenol 600 mg every 6 hours for neuropathic pain. Comorbids That Continue To Impact The Rehabilitation Process: Currently, his comorbids are well estephania ged and do not negatively impact his rehabilitation. If need be for hallucinations, Nuplazid may be used, although this medication is currently not on formulary. A prescription will have to be written for his to pick the medication up and bring it in for him. LORNE/CHANTELLE Voice ID: [id number] Report ID: [id number]
[2022-09-17 04:40] LABS: Absolute Lymphocytes (CBC) 1.6 K/uL (0.7-4.9); Hematocrit 38.5 % (39.6-49.0); Lymphocytes % 20.4 % (15.3-44.8); MCV 90.6 fL (80-100); MPV 8.8 fL (7.6-11.3); RBC Red Blood Cell Count 4.25 M/uL (4.33-5.43)
[2022-09-17 04:51] LABS: Magnesium 1.6 mg/dL (1.6-2.4); Potassium 3.3 mEq/L (3.5-5.1)
[2022-09-17] MEDS ORDERED: POTASSIUM CL SA 10 MEQ TAB PO ONE (06:15)
[2022-09-17] MEDS: PANTOPRAZOLE 40MG TABLET PO SCH ×2 (06:21→16:10)
[2022-09-17] MEDS: CARBIDOPA/LEVODOPA 25/100 TAB PO SCH ×3 (07:23→19:09)
[2022-09-17] MEDS: SUCRALFATE 1 GM TABLET PO SCH ×3 (07:25→16:57)
[2022-09-17] MEDS: MAGNESIUM OXIDE 400 MG TAB PO SCH ×2 (07:25→19:10)
[2022-09-17] MEDS: CRANBERRY FRUIT EXTRACT 200 MG CAP PO SCH ×2 (07:25→19:09)
[2022-09-17] MEDS: TAMSULOSIN 0.4 MG SR CAP PO SCH (07:25)
[2022-09-17] MEDS: MEMANTINE HCL 10 MG TABLET PO SCH ×2 (07:25→19:10)
[2022-09-17] MEDS: GABAPENTIN 300 MG CAP PO SCH ×2 (07:25→19:10)
[2022-09-17] MEDS: ENSURE ENLIVE 237 ML CAN PO SCH ×2 (07:26→19:09)
[2022-09-17] MEDS: DOCUSATE NA/SENNA CONC 1 TAB PO SCH (19:10)
[2022-09-17] MEDS: QUETIAPINE 25 MG TAB PO SCH (19:10)
--- NOTE | 2022-09-17 21:35 | PN ---
Date of Progress Note: 09/17/2022 Time Of Service: 1:00 p.m. Subjective: Mr. Christensen is resting comfortably in bed. He is actually asleep. is at the bedside . From staff, he has no new complaints. He did work very hard this morning with physical therapy an d went to sleep. Review of Systems: No reported issues such as fevers, chills, nausea, vomiting, myalgias, arthralgias. Physical Examination: Vital Signs: Blood pressure 126/67, pulse 84, respiratory rate 17, temperature 97.1, oxygen saturati on 96%. The patient does not have any new or abnormal findings on this examination. Laboratory Studies: Complete blood count with differential is essentially unremarkable. Chemistries unremarkable except low potassium of 3.3, and has been replaced with 20 mEq of potassium and then ma intenance with 10 mEq daily. Calcium is 8.7. Magnesium 1.6. X-ray/imaging: None. Medications: Unchanged except he is now on potassium 10 mEq daily. It should be noted the patient s till had some difficulty sleeping at night and he did receive Seroquel 50 mg at bedtime, Ativan 0.5 m g, gabapentin 300 mg. Current Functional Status: Currently, he did stand and pivot transfers with minimal assistance using a rolling walker. Supine to sit transfers with minimum assistance for truncal assistance. Regardin g gait, he ambulated 250 feet twice and 175 feet twice with contact guard assistance using a rolling walker and he self propelled a wheelchair 125 feet with supervision. With speech therapy, he demonst rated temporal orientation with 75% accuracy and spatial orientation with 90% accuracy. He recalls 2 events from earlier today with moderate cues, but some confabulation was noted. For xmd-og-pmxoe, h e was contact guard assistance and showers. Progress Towards Rehabilitation Goals: Mr. Christensen is making good progress towards his goals of becomi ng independent with upper and lower body dressing, transferring, toileting, ambulating 250 feet up an d down 10 steps and performing cognitive functioning independently. Assessment: Mr. Christensen is a 76-year-old patient in the rehabilitation unit with Parkinson's and debil ity. He does have hallucinations, which have been control so far. He has dyslipidemia; hypertension ; peripheral neuropathy; urinary tract infection and that is improved; and GI bleed with diverticulos is, which has resolved. Plan: 1.Continue physical, occupational, and speech therapy 3.5 hours 5/7 days. 2.Continue with Flomax for prostate hypertrophy. 3.Continue with Senokot for constipation. 4.Continue with Protonix for GE reflux. 5.Continue with Carafate for diverticulitis. 6.Continue with Seroquel for psychosis and insomnia. 7.Continue with Namenda 5 mg twice daily for cognitive impairment. 8.Continue with gabapentin 300 mg twice daily along with Tylenol every 6 hours for neuropathic pain. Comorbidities That Continue To Impact Rehabilitation Process: At this point, his hallucinations are managed and are not negatively impacting his rehabilitation and multiple comorbid conditions are well managed as well. LB/MODL Voice ID: [id number] Report ID: [id number]
[2022-09-18 04:36] LABS: Magnesium 1.7 mg/dL (1.6-2.4); Potassium 3.7 mEq/L (3.5-5.1)
[2022-09-18] MEDS: PANTOPRAZOLE 40MG TABLET PO SCH ×2 (06:39→16:13)
[2022-09-18] MEDS: MAGNESIUM OXIDE 400 MG TAB PO SCH ×2 (07:43→19:10)
[2022-09-18] MEDS: CARBIDOPA/LEVODOPA 25/100 TAB PO SCH ×3 (07:43→19:10)
[2022-09-18] MEDS: ENSURE ENLIVE 237 ML CAN PO SCH ×2 (07:43→19:11)
[2022-09-18] MEDS: TAMSULOSIN 0.4 MG SR CAP PO SCH (07:43)
[2022-09-18] MEDS: CRANBERRY FRUIT EXTRACT 200 MG CAP PO SCH ×2 (07:43→19:10)
[2022-09-18] MEDS: GABAPENTIN 300 MG CAP PO SCH ×2 (07:44→19:10)
[2022-09-18] MEDS: MEMANTINE HCL 10 MG TABLET PO SCH ×2 (07:44→19:10)
[2022-09-18] MEDS: SUCRALFATE 1 GM TABLET PO SCH ×3 (07:44→16:48)
[2022-09-18] MEDS: POTASSIUM CL SA 10 MEQ TAB PO SCH (07:45)
[2022-09-18] MEDS: DOCUSATE NA/SENNA CONC 1 TAB PO SCH (19:10)
[2022-09-18] MEDS: QUETIAPINE 25 MG TAB PO SCH (19:10)
[2022-09-18] MEDS: LORAZEPAM 0.5 MG TABLET PO PRN (20:50)
--- NOTE | 2022-09-18 21:23 | PN ---
Date of Progress Note: 09/18/2022 Jrfw-Pp-Tjbv Progress Note Visit Time Of Service: 1:15 p.m. Subjective: Mr. Christensen is doing better today, more alert, ate lunch and is in between therapy session s. The patient's did get to observe some of his therapy and has a daughter, who is coming. The patient's is worried about him going home and being alone for several hours as she herself will have back surgery, beginning of next month and would not be able to help him. They are planning on having the family members and perhaps paid help. Review of Systems: Denies any fevers, chills, nausea, vomiting, myalgias, arthralgias, rash, or headache. Physical Examination: Vital Signs: Blood pressure 164/93, pulse 63, respiratory rate 15, temperature 97.5, and oxygen satu ration 97%. General: Mr. Christensen is resting comfortably. He is in no significant distress. HEENT: He appears normocephalic, atraumatic. Sclerae anicteric. Oropharynx pink and moist. Neck: Supple. Chest: Clear. Heart: Regular. Extremities: No significant clubbing, cyanosis, or edema. Laboratory Studies: No new laboratory studies except today he did have electrolytes with sodium 141, potassium 3.7, chloride 107, carbon dioxide 29, BUN 28, creatinine 0.98, magnesium 1.7, calcium 8.9. X-ray/imaging: None. Medications: His medications have been reviewed and remain unchanged compared to yesterday. Current Functional Status: Today he ambulated 250 feet twice, another 150 feet, another 105 feet twi ce with contact guard assistance using a rolling walker. He ascended and descended 10 steps with neelam ateral handrails and contact guard assistance. With speech therapy, he did improve his spatial and t emporal concepts with recall of 2 daily events using that. He did require minimum assistance for tavo entation tasks. He did stand and pivot transfers from wheelchair to bed 4 times with minimum assista nce. He engaged in recumbent bike for 15 minutes. Progress Towards Rehabilitation Goals: Mr. Christensen is making great progress towards his goals of becom ing independent with upper and lower body dressing, toileting, transferring, showering, and performin g activities of daily living independently. He is also making good progress, improving his cognitive function to modified independence level. Assessment: Mr. Christensen is a 76-year-old patient in the rehabilitation unit with Parkinson disease and debility. He is doing well, although he has some non frightening hallucinations. His comorbid cond itions are managed well including dyslipidemia, hypertension, urinary tract infections, and gastroint estinal bleed with diverticulosis. Plan: 1.Continue with physical and occupational therapy 3.5 hours, 5 of 7 days. 2.Continue all medications as indicated including Flomax, Senokot, Protonix, Carafate, Seroquel, Nam enda, and gabapentin. Comorbids That Continue To Impact Rehabilitation Process: At this point, his comorbids are not negat ively impacting his rehabilitation process. There are well managed. LB/MODL Voice ID: [id number] Report ID: [id number]
[2022-09-19] MEDS: CARBIDOPA/LEVODOPA 25/100 TAB PO SCH ×3 (07:18→19:30)
[2022-09-19] MEDS: PANTOPRAZOLE 40MG TABLET PO SCH ×2 (07:18→17:11)
[2022-09-19] MEDS: POTASSIUM CL SA 10 MEQ TAB PO SCH (08:38)
[2022-09-19] MEDS: SUCRALFATE 1 GM TABLET PO SCH ×3 (08:38→17:12)
[2022-09-19] MEDS: CRANBERRY FRUIT EXTRACT 200 MG CAP PO SCH ×2 (08:38→19:30)
[2022-09-19] MEDS: GABAPENTIN 300 MG CAP PO SCH ×2 (08:39→19:30)
[2022-09-19] MEDS: TAMSULOSIN 0.4 MG SR CAP PO SCH (08:39)
[2022-09-19] MEDS: MEMANTINE HCL 10 MG TABLET PO SCH ×2 (08:39→19:31)
[2022-09-19] MEDS: ENSURE ENLIVE 237 ML CAN PO SCH ×2 (08:42→19:31)
[2022-09-19] MEDS: MAGNESIUM OXIDE 400 MG TAB PO SCH ×2 (08:42→19:31)
--- NOTE | 2022-09-19 16:04 | RAD REPORT ---
EXAM DESCRIPTION: RAD - Ankle Right 2 View - 09/19/2022 3:24 pm CLINICAL HISTORY: Right ankle pain FINDINGS: No fracture or dislocation is seen. Mild osteoarthritis involves the ankle. Large plantar calcaneal spur Edema is present within the subcutaneous tissues
[2022-09-19] MEDS: DOCUSATE NA/SENNA CONC 1 TAB PO SCH (19:30)
[2022-09-19] MEDS: QUETIAPINE 25 MG TAB PO SCH (19:30)
[2022-09-19] MEDS: LORAZEPAM 0.5 MG TABLET PO PRN (21:00)
--- NOTE | 2022-09-19 23:26 | PN ---
Date of Progress Note: 09/19/2022 Iotn-Gy-Xjsd Progress Note Visit Time Of Service: 1:30 p.m. Subjective: Mr. Christensen is resting comfortably in a chair besides bed. He does have his ankles wrappe d. There is some pain at the ankle and swelling. He had 2 view x-rays done of the ankle. The right ankle showed a large plantar calcaneal spur with edema present within the subcutaneous tissue. Ther e is mild osteoarthritis involving the ankle. For the left ankle, the study also showed a large plan tar calcaneal spur with mild osteoarthritis. Review of Systems: He has noted swelling in the ankles with pain. There are myalgias and arthralgias in his feet and le gs. Physical Examination: Vital Signs: Blood pressure 100/66, pulse 87, respiratory rate 18, temperature 97.5, and oxygen satu ration 96%. General: Mr. Christensen is resting comfortably as noted. He is in no significant distress. HEENT: He is normocephalic, atraumatic. Sclerae anicteric. Oropharynx pink and moist. Neck: Supple. Chest: Clear. Heart: Regular. Extremities: Edema noted in the ankles and feet, but no clubbing or cyanosis. Laboratory Studies: No new laboratory studies since yesterday. X-ray/imaging: X-rays have been reported above. Medications: Medications have been reviewed and remain unchanged. Current Functional Status: Today he ambulated 250 feet twice, 375 feet once, 100 feet once with cont act guard assistance using a rolling walker. He ascended and descended 15 steps with bilateral handr ails and contact guard assistance. With speech therapy, he was oriented to the temporal and spatial concepts with 75% accuracy. He recalled 2 events from yesterday with moderate verbal cues. With his occupational therapy, he required verbal cues for sequencing steps of toileting hygiene. He did uri tyrone in the toilet and was not aware that he had done so. He donned and doffed his shoes independent ly while sitting in the wheelchair. Progress Towards Rehabilitation Goals: Mr. Christensen is making very good progress towards his rehabilita tion goals of becoming independent with upper and lower body dressing, transferring, toileting, showe ring, and ambulating 250 feet independently, and up and down 10 steps independently. He is also lesli ng good progress with his cognitive functioning become modified independent. Assessment: Mr. Christensen is a 76-year-old patient with Parkinson disease, debility. Recent x-rays of h is ankles showed large plantar spurs bilaterally in the feet, which have some surrounding edema and t hese calcaneal spurs are likely causing some pain as he tries to ambulate and there is some swelling. The patient also has multiple comorbid conditions including dementia for which he is on Namenda, fo r hallucinations he is on Seroquel, for gastrointestinal he is on Carafate, for constipation he is on Senokot, and prostate hypertrophy is treated with Flomax. Plan: 1.He may have topical NSAIDs on the ankles such as the Voltaren cream applied twice daily. 2.Medications for his comorbid conditions as outlined above should be continued. 3.Continue carbidopa/levodopa 2 tablets at 8, 12, and 7 p.m. Comorbids That Continue To Impact His Rehabilitation: Mr. Christensen did have the swelling and pain in th e ankles and feet with the plantar calcaneal spurs bilaterally. He is still doing very well despite that. He will likely benefit from an evaluation by the personal trainer once he leaves the rehabilitation unit. LB/MAXIL Voice ID: [id number] Report ID: [id number]
[2022-09-20] MEDS: PANTOPRAZOLE 40MG TABLET PO SCH ×2 (06:57→16:36)
[2022-09-20] MEDS: GABAPENTIN 300 MG CAP PO SCH ×2 (07:57→19:37)
[2022-09-20] MEDS: POTASSIUM CL SA 10 MEQ TAB PO SCH (07:57)
[2022-09-20] MEDS: CRANBERRY FRUIT EXTRACT 200 MG CAP PO SCH ×2 (07:57→19:34)
[2022-09-20] MEDS: CARBIDOPA/LEVODOPA 25/100 TAB PO SCH ×3 (07:57→19:34)
[2022-09-20] MEDS: SUCRALFATE 1 GM TABLET PO SCH ×3 (07:58→16:36)
[2022-09-20] MEDS: MEMANTINE HCL 10 MG TABLET PO SCH ×2 (07:58→19:34)
[2022-09-20] MEDS: TAMSULOSIN 0.4 MG SR CAP PO SCH (07:58)
--- NOTE | 2022-09-20 08:13 | P.RH.PN ---
Estimated Length of Stay: 13 Expected Discharge Date: 09/24/22 Discharge Disposition Plan: Home Family Support: Yes Vital Signs: Last Vital Signs Temp 97.1 F 09/20/22 06:57 Pulse 83 09/20/22 06:57 Resp 18 09/20/22 06:57 BP 139/62 09/20/22 06:57 Pulse Ox 96 09/20/22 06:57 Laboratory: Laboratory Last Values WBC 7.90 thou/uL (4.3-10.9) 09/17/22 04:01 RBC 4.25 M/uL (4.33-5.43) L 09/17/22 04:01 Hgb 13.0 g/dL (13.6-17.9) L 09/17/22 04:01 Hct 38.5 % (39.6-49.0) L 09/17/22 04:01 MCV 90.6 fL (80-100) 09/17/22 04:01 MCH 30.6 pg (27.0-35.0) 09/17/22 04:01 MCHC 33.8 g/dL (32.0-36.0) 09/17/22 04:01 RDW 13.2 % (12.1-15.2) 09/17/22 04:01 Plt Count 220 thou/uL (152-406) 09/17/22 04:01 MPV 8.8 fL (7.6-11.3) 09/17/22 04:01 Neutrophils % 66.5 % (41.7-73.7) 09/17/22 04:01 Lymphocytes % 20.4 % (15.3-44.8) 09/17/22 04:01 Monocytes % 8.7 % (3.3-12.3) 09/17/22 04:01 Eosinophils % 4.0 % (0-4.4) 09/17/22 04:01 Basophils % 0.4 % (0-1.3) 09/17/22 04:01 Absolute Neutrophils 5.3 K/uL (1.8-8.0) 09/17/22 04:01 Absolute Lymphocytes 1.6 K/uL (0.7-4.9) 09/17/22 04:01 Absolute Monocytes 0.7 K/uL (0.1-1.3) 09/17/22 04:01 Absolute Eosinophils 0.3 K/uL (0-0.5) 09/17/22 04:01 Absolute Basophils 0.0 K/uL (0-0.5) 09/17/22 04:01 Sodium 141 mEq/L (136-145) 09/18/22 03:56 Potassium 3.7 mEq/L (3.5-5.1) 09/18/22 03:56 Chloride 107 mEq/L (98-107) 09/18/22 03:56 Carbon Dioxide 29 mEq/L (21-32) 09/18/22 03:56 Anion Gap 8.7 mEq/L (5.0-15.0) 09/18/22 03:56 BUN 28 mg/dL (7-18) H 09/18/22 03:56 Creatinine 0.98 mg/dL (0.70-1.30) 09/18/22 03:56 Est GFR (CKD-EPI) 79 ml/min (=/>90) L 09/18/22 03:56 Glucose 95 mg/dL (74-106) 09/18/22 03:56 Calcium 8.9 mg/dL (8.5-10.1) 09/18/22 03:56 Magnesium 1.7 mg/dL (1.6-2.4) 09/18/22 03:56 Albumin 3.3 g/dL (3.4-5.0) L 09/15/22 11:26 Prealbumin 16.3 mg/dL (20-40) L 09/15/22 11:26 Urine Color Cancelled 09/16/22 01:47 Urine Clarity Cancelled 09/16/22 01:47 Urine pH Cancelled 09/16/22 01:47 Ur Specific [place] Cancelled 09/16/22 01:47 Glucose (UA)(Auto) Cancelled 09/16/22 01:47 Urine Ketones Cancelled 09/16/22 01:47 Urine Blood Cancelled 09/16/22 01:47 Urine Nitrite Cancelled 09/16/22 01:47 Urine Bilirubin Cancelled 09/16/22 01:47 Urine Urobilinogen Cancelled 09/16/22 01:47 Ur Leukocyte Esterase Cancelled 09/16/22 01:47 Urine RBC Cancelled 09/16/22 01:47 Urine Red Cell Clumps Cancelled 09/16/22 01:47 Urine WBC Cancelled 09/16/22 01:47 Urine WBC Clumps Cancelled 09/16/22 01:47 Ur Squamous Epith Cells Cancelled 09/16/22 01:47 U Non-Squamous Epi Cells Cancelled 09/16/22 01:47 Ur Transition Epith Cell Cancelled 09/16/22 01:47 Ur Renal Epithelial Cell Cancelled 09/16/22 01:47 Calcium Carbonate Cryst Cancelled 09/16/22 01:47 Calcium Oxalate Crystal Cancelled 09/16/22 01:47 Leucine Crystals Cancelled 09/16/22 01:47 Cystine Crystals Cancelled 09/16/22 01:47 Uric Acid Crystals Cancelled 09/16/22 01:47 Triple Phos Crystals Cancelled 09/16/22 01:47 Tyrosine Crystals Cancelled 09/16/22 01:47 Unidentified Crystals Cancelled 09/16/22 01:47 Amorphous Crystals Cancelled 09/16/22 01:47 Urine Bacteria Cancelled 09/16/22 01:47 Hyaline Casts Cancelled 09/16/22 01:47 Granular Casts Cancelled 09/16/22 01:47 Waxy Casts Cancelled 09/16/22 01:47 RBC Casts Cancelled 09/16/22 01:47 WBC Casts Cancelled 09/16/22 01:47 Urine Mucus Cancelled 09/16/22 01:47 Urine Trichomonas Cancelled 09/16/22 01:47 Ur Yeast w Hyphae Cancelled 09/16/22 01:47 Urine Yeast (Budding) Cancelled 09/16/22 01:47 Urine Sperm Cancelled 09/16/22 01:47 Ur Oval Fat Bodies Cancelled 09/16/22 01:47 Ur Microscopic Review Cancelled 09/16/22 01:47 Urine Culture Reflexed Cancelled 09/16/22 01:47 Urine Total Protein Cancelled 09/16/22 01:47 Urine Ascorbic Acid Cancelled 09/16/22 01:47 Urine Fat Cancelled 09/16/22 01:47 Weight: 115 lb Wound Present: No Closed Surgical Incision Present: No Negative Pressure Wound Therapy Present: No Physician Update: Blood work reviewed and are stable. He is making good progress over with all therapy. His Parkinson's disease control has improved. His has nondisturbing hallucinations. His LDL is elevated and will start Lipitor 20 mg at night. Will likely be discharged home next week. Doing better with speech therapy. More attentive oriented to space and time. Bed mobility is at min assistance CGA with transfers. 375' walking and up and down 15 steps with CGA. Met half of ADL goals. Requires verbal ques to performing many activities. Summary: Patient's care plan and infrastructure developer goals have been reviewed and revised as necessary. Please see the Rehabilitation Signature page for all necessary signatures.
[2022-09-20] MEDS: MAGNESIUM OXIDE 400 MG TAB PO SCH ×2 (09:12→19:34)
[2022-09-20] MEDS: ENSURE ENLIVE 237 ML CAN PO SCH ×2 (09:12→19:34)
[2022-09-20] MEDS: DOCUSATE NA/SENNA CONC 1 TAB PO SCH (19:37)
[2022-09-20] MEDS: ATORVASTATIN 20 MG TAB PO SCH (19:37)
[2022-09-20] MEDS: LORAZEPAM 0.5 MG TABLET PO PRN (19:39)
[2022-09-20] MEDS: QUETIAPINE 25 MG TAB PO SCH (21:00)
[2022-09-21] MEDS: PANTOPRAZOLE 40MG TABLET PO SCH ×2 (07:59→16:22)
[2022-09-21] MEDS: GABAPENTIN 300 MG CAP PO SCH ×2 (08:14→19:29)
[2022-09-21] MEDS: TAMSULOSIN 0.4 MG SR CAP PO SCH (08:14)
[2022-09-21] MEDS: CRANBERRY FRUIT EXTRACT 200 MG CAP PO SCH ×2 (08:15→19:28)
[2022-09-21] MEDS: CARBIDOPA/LEVODOPA 25/100 TAB PO SCH ×3 (08:15→19:29)
[2022-09-21] MEDS: POTASSIUM CL SA 10 MEQ TAB PO SCH (08:15)
[2022-09-21] MEDS: SUCRALFATE 1 GM TABLET PO SCH ×3 (08:16→16:20)
[2022-09-21] MEDS: MEMANTINE HCL 10 MG TABLET PO SCH ×2 (08:17→19:28)
[2022-09-21] MEDS: ENSURE ENLIVE 237 ML CAN PO SCH ×2 (08:17→19:30)
[2022-09-21] MEDS: MAGNESIUM OXIDE 400 MG TAB PO SCH ×2 (08:17→19:29)
[2022-09-21] MEDS: DOCUSATE NA/SENNA CONC 1 TAB PO SCH (19:28)
[2022-09-21] MEDS: ATORVASTATIN 20 MG TAB PO SCH (19:29)
[2022-09-21] MEDS: QUETIAPINE 25 MG TAB PO SCH (19:30)
--- NOTE | 2022-09-21 20:44 | PN ---
Date of Progress Note: 09/21/2022 Uism[facility]Taje Progress Note Time Of Service: 6:30 p.m. Subjective: Mr. Christensen wanted to have his right forearm looked at where he had an area of skin impact ed by a barbed wire. The area is actually healing well and it is hyperemic, but no hard clot noted a nd no drainage. It is not warm, not tender to touch. The area appears to be healing well. He has n o other complaints or concerns. Review of Systems: No fevers, chills, nausea, vomiting, myalgias, or arthralgias. No rash. No headache. No weight kiera nge. No other complaints. Physical Examination: Vital Signs: Blood pressure 108/73, pulse 82, respiratory rate 16, temperature 97.5, and oxygen satu ration 98%. General: Mr. Christensen is resting in bed. He is in no acute distress. HEENT: He is normocephalic, atraumatic. Sclerae anicteric. Oropharynx pink and moist. Neck: Supple. Chest: Clear. Heart: Regular. Extremities: No significant clubbing, cyanosis, or edema. Neurological: He is alert and oriented to person, place, time, and situation. Follows commands appr opriately. He has slightly increased tone in upper and lower extremities. He has cogwheeling bilate rally in upper extremities. Laboratory Studies: No new laboratory studies. X-ray/imaging: No new x-rays or imaging. Medications: Have been reviewed and remain unchanged. Current Functional Status: He did stand and pivot transfers with standby assistance with a rolling w alker. He ambulated 500 feet and another 250 feet twice with standby assistance using a rolling walk er. Up and down 15 steps with bilateral handrails and standby assistance. Progress Towards Rehabilitation Goals: Mr. Christensen is making excellent progress towards his goals of b ecoming independent with upper and lower body dressing, transferring, toileting, showering, ambulatin g 500 feet with modified independence, and up and down 10 steps with modified independence. In addit ion, he performed cognitive functioning independently. Assessment And Plan: Mr. Christensen is a 76-year-old patient in the rehabilitation unit with Parkinson di sease and debility. He does have on recent x-rays, large plantar spurs in the ankles with some surro unding edema and that will be evaluated by Dr. Desir once patient is discharged. He has dementia and is on Namenda. He has hallucinations, which is managed by Seroquel. For his GI constipation, he prieto s Senokot and Carafate. For his prostate hypertrophy, he is on Flomax. Comorbids That Continue To Impact Rehabilitation: His bilateral plantar calcaneal spurs are mildly l imiting his ability to ambulate and they are also causing swelling in the ankles, making it mildly di fficult for him to bend and extend his ankles. Despite this, he is doing excellent, ambulating and g oing up and down steps. LB/MODL Voice ID: [id number] Report ID: [id number]
[2022-09-22] MEDS: PANTOPRAZOLE 40MG TABLET PO SCH ×2 (06:51→16:15)
[2022-09-22] MEDS: MAGNESIUM OXIDE 400 MG TAB PO SCH ×2 (07:54→19:20)
[2022-09-22] MEDS: SUCRALFATE 1 GM TABLET PO SCH ×3 (07:54→16:57)
[2022-09-22] MEDS: GABAPENTIN 300 MG CAP PO SCH ×2 (07:54→19:19)
[2022-09-22] MEDS: MEMANTINE HCL 10 MG TABLET PO SCH ×2 (07:54→19:20)
[2022-09-22] MEDS: POTASSIUM CL SA 10 MEQ TAB PO SCH (07:54)
[2022-09-22] MEDS: CRANBERRY FRUIT EXTRACT 200 MG CAP PO SCH ×2 (07:54→19:18)
[2022-09-22] MEDS: TAMSULOSIN 0.4 MG SR CAP PO SCH (07:55)
[2022-09-22] MEDS: CARBIDOPA/LEVODOPA 25/100 TAB PO SCH ×3 (07:55→19:20)
[2022-09-22] MEDS: ENSURE ENLIVE 237 ML CAN PO SCH ×2 (07:58→19:36)
[2022-09-22] MEDS: DOCUSATE NA/SENNA CONC 1 TAB PO SCH (19:19)
[2022-09-22] MEDS: LORAZEPAM 0.5 MG TABLET PO PRN (19:19)
[2022-09-22] MEDS: ATORVASTATIN 20 MG TAB PO SCH (19:20)
[2022-09-22] MEDS: QUETIAPINE 25 MG TAB PO SCH (19:24)
[2022-09-23] MEDS: PANTOPRAZOLE 40MG TABLET PO SCH ×2 (06:34→15:55)
[2022-09-23] MEDS: CRANBERRY FRUIT EXTRACT 200 MG CAP PO SCH ×2 (07:17→19:18)
[2022-09-23] MEDS: ENSURE ENLIVE 237 ML CAN PO SCH ×2 (07:18→19:19)
[2022-09-23] MEDS: MAGNESIUM OXIDE 400 MG TAB PO SCH ×2 (07:18→19:18)
[2022-09-23] MEDS: TAMSULOSIN 0.4 MG SR CAP PO SCH (07:18)
[2022-09-23] MEDS: GABAPENTIN 300 MG CAP PO SCH ×2 (07:18→19:17)
[2022-09-23] MEDS: CARBIDOPA/LEVODOPA 25/100 TAB PO SCH ×3 (07:18→19:17)
[2022-09-23] MEDS: MEMANTINE HCL 10 MG TABLET PO SCH ×2 (07:18→19:16)
[2022-09-23] MEDS: SUCRALFATE 1 GM TABLET PO SCH ×3 (07:19→16:49)
[2022-09-23] MEDS: POTASSIUM CL SA 10 MEQ TAB PO SCH (07:19)
[2022-09-23 07:22] LABS: Magnesium 2.2 mg/dL (1.6-2.4); Potassium 3.8 mEq/L (3.5-5.1); Prealbumin 17.5 mg/dL (20-40)
[2022-09-23 07:49] LABS: Absolute Lymphocytes (CBC) 1.8 K/uL (0.7-4.9); Hematocrit 41.6 % (39.6-49.0); MCV 90.9 fL (80-100); MPV 8.7 fL (7.6-11.3); RBC Red Blood Cell Count 4.58 M/uL (4.33-5.43)
[2022-09-23 17:39] LABS: Specific Gravity 1.022 (1.005-1.030); Urine Bacteria None Seen /HPF (<20); Urine Bilirubin NEGATIVE (Negative); Urine Blood Negative (Negative); Urine Clarity Clear (Clear); Urine Color Light-Yellow (Yellow); Urine Crystals Unidentified Few /HPF (None Seen); Urine Glucose NEGATIVE (Negative); Urine Mucus Slight /HPF (None Seen); Urine Protein TRACE (Negative); Urine Urobilinogen Normal (Normal)
[2022-09-23] MEDS: DOCUSATE NA/SENNA CONC 1 TAB PO SCH (19:16)
[2022-09-23] MEDS: ATORVASTATIN 20 MG TAB PO SCH (19:17)
[2022-09-23] MEDS: QUETIAPINE 25 MG TAB PO SCH (19:18)
[2022-09-23] MEDS: LORAZEPAM 0.5 MG TABLET PO PRN (19:18)
[2022-09-24] MEDS: PANTOPRAZOLE 40MG TABLET PO SCH (06:30)
[2022-09-24 06:45] VITALS: BP 111/60; TEMP 97
[2022-09-24] MEDS: SUCRALFATE 1 GM TABLET PO SCH ×2 (07:34→11:51)
[2022-09-24] MEDS: CRANBERRY FRUIT EXTRACT 200 MG CAP PO SCH (07:34)
[2022-09-24] MEDS: TAMSULOSIN 0.4 MG SR CAP PO SCH (07:34)
[2022-09-24] MEDS: MAGNESIUM OXIDE 400 MG TAB PO SCH (07:35)
[2022-09-24] MEDS: CARBIDOPA/LEVODOPA 25/100 TAB PO SCH ×2 (07:35→11:50)
[2022-09-24] MEDS: GABAPENTIN 300 MG CAP PO SCH (07:35)
[2022-09-24] MEDS: POTASSIUM CL SA 10 MEQ TAB PO SCH (07:35)
[2022-09-24] MEDS: ENSURE ENLIVE 237 ML CAN PO SCH (07:36)
[2022-09-24] MEDS: MEMANTINE HCL 10 MG TABLET PO SCH (07:36)
[2022-09-24] MEDS ORDERED: PNEUMOCOCCAL VACCINE 0.5 ML IMVAC ONE (08:00)
--- NOTE | 2022-09-24 12:36 | PN ---
Date of Progress Note: 09/24/2022 Time Of Service: 9:00 a.m. Subjective: Mr. Christensen is sitting in a chair at the nurse's station, ready to be discharged later tod . He has no new complaints. He is happy with his stay and how he has improved and is doing very w ell. Review of Systems: No fevers, chills, nausea, vomiting, myalgias, arthralgias, rash, headache, weight change. Hallucina tions are not active at this point. Physical Examination: Vital Signs: Blood pressure 111/60, pulse of 51, respiratory rate 15, temperature 97, oxygen saturat ion 97%. Weight 162 pounds, height 5 feet 9 inches. General: Mr. Christensen is sitting comfortably in a chair. He is in no acute distress. HEENT: He is normocephalic, atraumatic. His sclerae are anicteric. Oropharynx is moist. Neck: Supple. Chest: Clear. Heart: Regular. Extremities: Show no edema or cyanosis. Neuro: In terms of his neurological condition, he does have Parkinson disease, which is bradykinetic predominant and not tremor dominant. He has mildly masked face. He does not have any resting tremo r. He has increased tone with mild cogwheeling, but that has improved actually since he has come to the unit. His strength is symmetric in the upper and lower extremities. Sensation is symmetric, ref lexes as well. Laboratory Studies: His complete blood count with differential is completely normal. Chemistries: Sodium 139, potassium 3.8, chloride 110, BUN 26, creatinine 1.03. Prealbumin 17.5. X-ray/imaging: No x-ray or imaging done recently. Medications: Have not been changed and continue to be Lipitor 20 mg at bedtime, Tylenol 500 mg every 4 hours, carbidopa/levodopa 25/100 two tablets 3 times daily, gabapentin 300 mg twice daily, Ativan 0.5 mg at night as needed, magnesium oxide 400 mg twice daily, memantine 5 mg twice daily, Ensure Enl luis 237 mL twice daily, Zofran 4 mg every 4 hours as needed, Protonix 40 mg twice daily, potassium 10 mEq daily, Seroquel 50 mg at bedtime, Senokot S 2 at 10 in bedtime, Carafate 1 g 3 times daily, Bridger max 0.4 mg daily. Current Functional Status: Currently, Mr. Christensen is able to ambulate 500 feet twice and another 150 f eet once with standby assistance using a rolling walker. He ascended and descended 15 steps with neelam ateral handrails with standby assistance, performed standby assistance transfers independently and [place] to sit and sit to stand. With his speech therapy, he worked on improved spatial and temporal or ientation skills and slow sustained attention. He required minimal assistance with spatial and tempo ral orientation. He could sustain attention for 3 minutes. With his occupational therapy, he is abl e to ambulate to the shower with a rolling walker with verbal cues and take longer strides. Progress Towards Rehabilitation Goals: Mr. Christensen made excellent progress towards his goals of becomi ng independent with upper and lower body dressing, transferring, toileting, showering, ambulating ove r 500 feet in modified independence and up and down 10 steps with modified independence and perform c ognitive functioning actually with modified independence. Assessment: Mr. Christensen is a 76-year-old patient in the rehabilitation unit with Parkinson's and debil ity. He does have a large calcaneal spurs, which will be addressed after he is discharged. 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 He has constipation managed by Senokot, prostate hypert rophy, managed with Flomax. Plan: He will be discharged home today and he will follow up with his neurologist, primary care phys ician, podiatrists, and continue with home health doing physical and occupational therapy. LORNE/CHANTELLE Voice ID: [id number] Report ID: [id number]
== END 2022-09-24 13:40 | disposition home health service (06) | DRG 948 ==
LOC: 5TH 12:25
PROVIDERS: ADMIT Psychiatry & Neurology Neurology with Special Qualifications in Child Neurology; ATTEND Psychiatry & Neurology Neurology with Special Qualifications in Child Neurology
DX: R53.81 Other malaise (principal); R44.3 Hallucinations, unspecified; N39.0 Urinary tract infection, site not specified; K92.2 Gastrointestinal hemorrhage, unspecified; F02.82 Dementia in other diseases classified elsewhere, unspecified severity, with psychotic disturbance; G20 Parkinson's disease; R41.0 Disorientation, unspecified; K21.9 Gastro-esophageal reflux disease without esophagitis; E78.5 Hyperlipidemia, unspecified; I10 Essential (primary) hypertension; G62.9 Polyneuropathy, unspecified; N40.0 Benign prostatic hyperplasia without lower urinary tract symptoms; I70.91 Generalized atherosclerosis; B35.1 Tinea unguium; L60.2 Onychogryphosis; K57.90 Diverticulosis of intestine, part unspecified, without perforation or abscess without bleeding; M79.10 Myalgia, unspecified site; M25.50 Pain in unspecified joint; K59.00 Constipation, unspecified; M77.30 Calcaneal spur, unspecified foot; Z23 Encounter for immunization
CPT/HCPCS: 36415; 80048; 81001; 82040; 83735; 84134; 85025; 87086; 87088; 90471; 90732; 92523; 94010; 97110; 97112; 97116; 97129; 97161; 97165; 97530; 97542; J3475; Q0162